=== PATIENT | female | born 1985 | race American Indian/Alaskan Native ===

== ENCOUNTER 2020-08-23 05:38 | Emergency (ER) | payer MEDICARE ==
[2020-08-23] MEDS ORDERED: SODIUM CHLORIDE 0.9% 1000 ML 1,000 ML IV ONE (06:35)
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
[2020-08-23 07:52] LABS: Hematocrit 36.3 % (30.3-42.9); Hemoglobin 12.1 gm/dl (10.1-14.3); Mean Corpuscular HGB Conc 33 % (30-34); Mean Corpuscular Volume 86 fl (79-97); Platelet Count 234 K/mm3 (140-440); Red Blood Count 4.24 M/mm3 (3.65-5.03); Red Cell Distribution Width 13.9 % (13.2-15.2)
[2020-08-23 08:05] LABS: BUN/Creatinine Ratio 6; Blood Urea Nitrogen 7 mg/dL (7-17); Calcium 8.8 mg/dL (8.4-10.2); Hemolysis Index 10
[2020-08-23 09:07] VITALS: BP 125/89
[2020-08-23 12:52] LABS: Anisocytosis 1+; Platelet Estimate Consistent w Auto; Total Cells Counted 100
== END 2020-08-23 09:07 | disposition home or self-care (01) ==
LOC: ED 05:38
DX: E11.65 Type 2 diabetes mellitus with hyperglycemia (principal); F40.10 Social phobia, unspecified; Z79.84 Long term (current) use of oral hypoglycemic drugs; Z79.899 Other long term (current) drug therapy
CPT/HCPCS: 36415; 80048; 85007; 85025; 96360; 99284; J7030; 80320; G0480

== ENCOUNTER 2020-08-29 17:50 | Observation (INO) | payer MEDICARE ==
[2020-08-29] MEDS ORDERED: SODIUM CHLORIDE 0.9% 1000 ML 1,000 ML IV ONE (18:35)
--- NOTE | 2020-08-29 18:41 | Emergency Department Report ---
ED General Adult HPI - General Chief complaint: Weakness Stated complaint: i feel weak PUI?: No Time Seen by Provider: 08/29/20 18:26 Source: patient, EMS ( EMS documentation not available at time of chart dictation ), RN notes reviewed, old records reviewed Mode of arrival: Stretcher Limitations: Physical Limitation - History of Present Illness Initial comments: The patient was evaluated in the emergency department for symptoms described in the history of present illness. He/she was evaluated in the context of the global COVID-19 pandemic, which necessitated consideration that the patient might be at risk for infection with the virus that causes COVID-19. Institutional protocols and algorithms that pertain to the evaluation of patients at risk for COVID-19 are in a state of rapid change based on information released by regulatory bodies including the CDC and federal and state organizations. These policies and algorithms were followed during the patient's care in the emergency department. Please note that these policies, procedures and recommendations changed on a rapid basis. Primary CARE doctor: Dr. Neal Past medical history: Obesity, [id number] diabetes mellitus, diabetic neuropathy, anemia, hypertension, polysubstance abuse, history of DKA, rhabdomyolysis The patient is a 35-year-old female. She is not known to myself previously. She presents to the ER today with complaint of generalized painless weakness, malaise, fatigue, feeling like she will pass out. To me, she denies headache, neck pain, chest pain, abdominal pain. She has no loss of taste or smell. She reports that she recently got her diabetic medication filled, but she cannot recall what specifically she got it filled. She is not sure if she is compliant with a diabetic diet. She tells me that she was walking earlier on today, began to feel weak, and then went to a local police matron, and asked him to call 911, and thus EMS was activated. Patient denies travel, surgery, oral contraceptive use, and the possibility of . The patient's symptoms of weakness are constant, they are painless, she in dicates they worsen with exertion, and they decreased with rest -: Gradual, hour(s), days(s) Improves with: other Worsens with: other - Related Data Home Medications Medication Instructions Recorded Confirmed Last Taken metFORMIN [Glucophage] 850 mg PO BID 08/29/20 08/29/20 Unknown Allergies Allergy/AdvReac Type Severity Reaction Status Date / Time No Known Allergies Allergy Verified 07/20/20 05:07 ED Review of Systems ROS: Stated complaint: HEADACHE Other details as noted in HPI Constitutional: malaise, weakness, other (Denies loss of taste and smell). denies: fever Eyes: denies: eye discharge ENT: denies: epistaxis Respiratory: denies: cough Cardiovascular: other (Patient states she feels like she will pass). denies: chest pain Gastrointestinal: denies: abdominal pain, nausea, vomiting, diarrhea Genitourinary: denies: dysuria Musculoskeletal: myalgia Neurological: weakness ED Past Medical Hx - Past Medical History Hx Diabetes: Yes Hx Renal Disease: No - Surgical History Past Surgical History?: Yes - Social History Smoking Status: Never Smoker - Medications Home Medications: Home Medications Medication Instructions Recorded Confirmed Last Taken Type metFORMIN [Glucophage] 850 mg PO BID 08/29/20 08/29/20 Unknown History ED Physical Exam - General Limitations: Physical Limitation General appearance: anxious, lethargic, in distress, obese - Head Head exam: Present: atraumatic, normocephalic - Eye Eye exam: Present: normal appearance, PERRL, EOMI. Absent: nystagmus - ENT ENT exam: Present: normal orophraynx, mucous membranes dry, normal external ear exam - Neck Neck exam: Present: normal inspection, full ROM. Absent: tenderness, meningismus - Respiratory Respiratory exam: Present: normal lung sounds bilaterally. Absent: respiratory distress, wheezes, rales, rhonchi, stridor, decreased breath sounds - Cardiovascular Cardiovascular Exam: Present: normal rhythm, tachycardia, normal heart sounds. Absent: systolic murmur, diastolic murmur, rubs, gallop - GI/Abdominal GI/Abdominal exam: Present: soft. Absent: distended, tenderness, guarding, rebound, rigid, pulsatile mass - Extremities Exam Extremities exam: Present: normal inspection, full ROM, other (2+ pulses noted in the bilateral upper and lower extremities. There is no palpable cord. negative Homans sign. Muscular compartments are soft. The pelvis is stable.). Absent: pedal edema, calf tenderness - Back Exam Back exam: Present: normal inspection. Absent: tenderness, CVA tenderness (R), CVA tenderness (L), paraspinal tenderness, vertebral tenderness - Neurological Exam Neurological exam: Present: alert (Patient alert to name, month and location. However, she is sleepy, sluggish and slow to respond), other (No facial droop. Tongue midline. Extraocular movements intact bilaterally. Facial sensation intact to light touch in V1, V2, V3 distribution bilaterally. 5 and a 5 strength in 4 extremities. Sensation intact to light touch in 4 extremities.) - Psychiatric Psychiatric exam: Present: flat affect - Skin Skin exam: Present: warm, dry, intact, normal color. Absent: rash ED Course Vital Signs 08/29/20 08/29/20 08/29/20 19:00 19:37 19:46 Temperature 98.8 F Pulse Rate 113 H 105 H Respiratory 18 27 H Rate Blood Pressure 126/97 Blood Pressure 117/82 [left arm] O2 Sat by Pulse 96 97 98 Oximetry 08/29/20 08/29/20 08/29/20 20:00 20:32 20:46 Temperature Pulse Rate 99 H 101 H 95 H Respiratory 29 H 24 26 H Rate Blood Pressure 126/97 132/89 132/89 Blood Pressure [left arm] O2 Sat by Pulse 98 98 98 Oximetry 08/29/20 21:00 Temperature Pulse Rate 98 H Respiratory 34 H Rate Blood Pressure 132/89 Blood Pressure [left arm] O2 Sat by Pulse 98 Oximetry - Reevaluation(s) Reevaluation #1: 08/29/20 18:39 Differential diagnosis, including but not limited to: Diabetic ketoacidosis, hyperosmolar state, dehydration, electrolyte derangement, thyroid derangement, toxic encephalopathy, metabolic encephalopathy, infectious encephalopathy, obesity Assessment and plan: 35-year-old female with general weakness, who is tachycardic, with clammy dry skin, dry mucous membranes, suspicious for acute dehydration, and metabolic crisis. She has no meningeal signs, she is alert and oriented to name, place and location, and has a nonfocal motor examination. Check appropriate laboratory studies, EKG, urinalysis, x-ray the chest, noncontrast CT scan of the brain. Obtain expedient Accu-Chek. We have recommended admission to the medical service once initial diagnostics have resulted. Have discussed this plan of care with the patient, who verbalized understanding, and was amenable to this plan of care. During entire history and physical examination, I am chaperoned and escorted by nurse Awais Xiao. 08/29/20 19:58 156 lbs [place] Body Weight Equivalent to 71 kg Actual body weight is 154% (1.5x) ideal body weight Patient found to rule in for systemic inflammatory response syndrome, manifest by lactic acidosis, tachycardia, and leukocytosis. Patient found to be hypokalemic and hypomagnesemic. She is also found to have an elevated troponin level. She did endorse to me a sensation of near syncope. Given tachycardia, elevated troponin, left axis deviation, with left anterior fascicular block, Uncertain if this is a type II troponin leak, or type I leak. Cannot anticoagulate pending head CT at this time, patient did endorse a complaint of headache to EMS. CT scan of the brain pending. CT scan of the chest pending. We will discussed with cardiology once CT scan of the brain and chest have resulted. This may be a type II leak, given tachycardia and presumed history of drug abuse. Do not suspect bacteremia clinically at this time, patient is awake to name, clinically sober, no meningeal signs, we will give her ceftriaxone empirically, IV fluids, dosed by ideal body weight of 71 kg. 08/29/20 19:59 08/29/20 21:38 patient reassessed. She is awake and moving 4 extremities. She is alert. She is protecting her airway. Noncontrast CT scan of the brain suggests nonspecific sellar abnormality. This has been present since June 2020. It appears to be unchanged from prior. I have contacted our neurosurgeon on-call, Dr. Garay, discussed the patient's history, physical, pertinent imaging findings. He recommends this is likely an incidental finding, does not require emergent surgical intervention or emergent MRI, or emergent medical intervention, but also advises that his group can see the patient in consultation. Elevated troponin reviewed and appreciated. Contacted our promotional representative on-call, Dr. Owen, and have discussed the patient's history, physical, pertinent laboratory studies and imaging findings. He agrees to follow in consultation. We suspect that this is likely a type II troponin leak at this time. Systemic anticoagulation heparinization Not recommended at this time. Hospital physician, Dr. Lewis to admit to the [facility] service Medical decision makin-year-old female, found to have elevated troponin, abnormal EKG, near syncope, multiple electrolyte derangements, and systemic inflammatory response syndrome, to be admitted to the medical service for further supportive care. ED Medical Decision Making - Lab Data Result diagrams: 08/29/20 18:53 08/29/20 18:53 Vital Signs 08/29/20 19:00 Temperature 98.8 F Pulse Rate 113 H Respiratory 18 Rate Blood Pressure 117/82 [left arm] O2 Sat by Pulse 96 Oximetry Lab Results 08/29/20 08/29/20 08/29/20 Range/Units 18:50 18:53 18:53 WBC 14.4 H (4.5-11.0) K/mm3 RBC 4.80 (3.65-5.03) M/mm3 Hgb 13.7 (10.1-14.3) gm/dl Hct 40.3 (30.3-42.9) % MCV 84 (79-97) fl MCH 29 (28-32) pg MCHC 34 (30-34) % RDW 14.0 (13.2-15.2) % Plt Count 354 (140-440) K/mm3 Lymph % (Auto) 4.6 L (13.4-35.0) % [place] % (Auto) 6.6 (0.0-7.3) % Eos % (Auto) 0.0 (0.0-4.3) % Baso % (Auto) 0.4 (0.0-1.8) % Lymph # (Auto) 0.7 L (1.2-5.4) K/mm3 [place] # (Auto) 0.9 H (0.0-0.8) K/mm3 Eos # (Auto) 0.0 (0.0-0.4) K/mm3 Baso # (Auto) 0.1 (0.0-0.1) K/mm3 Seg Neutrophils % 88.4 H (40.0-70.0) % Seg Neutrophils # 12.7 H (1.8-7.7) K/mm3 PT 13.7 (12.2-14.9) Sec. INR 1.07 (0.87-1.13) APTT 28.9 (24.2-36.6) Sec. VBG pH (7.320-7.420) Sodium (137-145) mmol/L Potassium (3.6-5.0) mmol/L Chloride (98-107) mmol/L Carbon Dioxide (22-30) mmol/L Anion Gap mmol/L BUN (7-17) mg/dL Creatinine (0.6-1.2) mg/dL Estimated GFR ml/min BUN/Creatinine Ratio % Glucose (65-100) mg/dL Lactic Acid (0.7-2.0) mmol/L Calcium (8.4-10.2) mg/dL Magnesium (1.7-2.3) mg/dL Total Bilirubin (0.1-1.2) mg/dL AST (5-40) units/L ALT (7-56) units/L Alkaline Phosphatase (35-129) units/L Ammonia (25-60) umol/L Total Creatine Kinase (30-135) units/L Troponin T (0.00-0.029) ng/mL Total Protein (6.3-8.2) g/dL Albumin (3.9-5) g/dL Albumin/Globulin Ratio % Triglycerides (2-149) mg/dL Cholesterol (50-199) mg/dL LDL Cholesterol Direct (50-130) mg/dL HDL Cholesterol (40-59) mg/dL Cholesterol/HDL Ratio % TSH (0.270-4.200) mlU/mL HCG, Quant (0-4) mIU/mL Urine Color Yellow (Yellow) Urine Turbidity Clear (Clear) Urine pH 8.0 H (5.0-7.0) Ur Specific [place] 1.011 (1.003-1.030) Urine Protein 100 mg/dl (Negative) mg/dL Urine Glucose (UA) 50 (Negative) mg/dL Urine Ketones 20 (Negative) mg/dL Urine Blood Sm (Negative) Urine Nitrite Neg (Negative) Urine Bilirubin Neg (Negative) Urine Urobilinogen < 2.0 (<2.0) mg/dL Ur Leukocyte Esterase Neg (Negative) Urine WBC (Auto) 3.0 (0.0-6.0) /HPF Urine RBC (Auto) 1.0 (0.0-6.0) /HPF U Epithel Cells (Auto) < 1.0 (0-13.0) /HPF Urine Mucus Few /HPF Salicylates (2.8-20.0) mg/dL Urine Opiates Screen Urine Methadone Screen Acetaminophen (10.0-30.0) ug/mL Ur Barbiturates Screen Ur Phencyclidine Scrn Ur Amphetamines Screen U Benzodiazepines Scrn Urine Cocaine Screen U Marijuana (THC) Screen Drugs of Abuse Note Plasma/Serum Alcohol (0-0.07) % 08/29/20 08/29/20 08/29/20 Range/Units 18:53 18:53 18:53 WBC (4.5-11.0) K/mm3 RBC (3.65-5.03) M/mm3 Hgb (10.1-14.3) gm/dl Hct (30.3-42.9) % MCV (79-97) fl MCH (28-32) pg MCHC (30-34) % RDW (13.2-15.2) % Plt Count (140-440) K/mm3 Lymph % (Auto) (13.4-35.0) % [place] % (Auto) (0.0-7.3) % Eos % (Auto) (0.0-4.3) % Baso % (Auto) (0.0-1.8) % Lymph # (Auto) (1.2-5.4) K/mm3 [place] # (Auto) (0.0-0.8) K/mm3 Eos # (Auto) (0.0-0.4) K/mm3 Baso # (Auto) (0.0-0.1) K/mm3 Seg Neutrophils % (40.0-70.0) % Seg Neutrophils # (1.8-7.7) K/mm3 PT (12.2-14.9) Sec. INR (0.87-1.13) APTT (24.2-36.6) Sec. VBG pH (7.320-7.420) Sodium 137 (137-145) mmol/L Potassium 3.2 L (3.6-5.0) mmol/L Chloride 96.9 L (98-107) mmol/L Carbon Dioxide 28 (22-30) mmol/L Anion Gap 15 mmol/L BUN 6 L (7-17) mg/dL Creatinine 1.0 (0.6-1.2) mg/dL Estimated GFR > 60 ml/min BUN/Creatinine Ratio 6 % Glucose 127 H (65-100) mg/dL Lactic Acid 3.50 H* (0.7-2.0) mmol/L Calcium 9.7 (8.4-10.2) mg/dL Magnesium (1.7-2.3) mg/dL Total Bilirubin 0.60 (0.1-1.2) mg/dL AST 37 (5-40) units/L ALT 20 (7-56) units/L Alkaline Phosphatase 63 (35-129) units/L Ammonia 55.0 (25-60) umol/L Total Creatine Kinase 758 H (30-135) units/L Troponin T 0.085 H (0.00-0.029) ng/mL Total Protein 8.2 (6.3-8.2) g/dL Albumin 4.2 (3.9-5) g/dL Albumin/Globulin Ratio 1.1 % Triglycerides 81 (2-149) mg/dL Cholesterol 128 (50-199) mg/dL LDL Cholesterol Direct 54 (50-130) mg/dL HDL Cholesterol 68 H (40-59) mg/dL Cholesterol/HDL Ratio 1.88 % TSH (0.270-4.200) mlU/mL HCG, Quant (0-4) mIU/mL Urine Color (Yellow) Urine Turbidity (Clear) Urine pH (5.0-7.0) Ur Specific [place] (1.003-1.030) Urine Protein (Negative) mg/dL Urine Glucose (UA) (Negative) mg/dL Urine Ketones (Negative) mg/dL Urine Blood (Negative) Urine Nitrite (Negative) Urine Bilirubin (Negative) Urine Urobilinogen (<2.0) mg/dL Ur Leukocyte Esterase (Negative) Urine WBC (Auto) (0.0-6.0) /HPF Urine RBC (Auto) (0.0-6.0) /HPF U Epithel Cells (Auto) (0-13.0) /HPF Urine Mucus /HPF Salicylates (2.8-20.0) mg/dL Urine Opiates Screen Urine Methadone Screen Acetaminophen (10.0-30.0) ug/mL Ur Barbiturates Screen Ur Phencyclidine Scrn Ur Amphetamines Screen U Benzodiazepines Scrn Urine Cocaine Screen U Marijuana (THC) Screen Drugs of Abuse Note Plasma/Serum Alcohol (0-0.07) % 08/29/20 08/29/20 08/29/20 Range/Units 18:53 18:53 18:53 WBC (4.5-11.0) K/mm3 RBC (3.65-5.03) M/mm3 Hgb (10.1-14.3) gm/dl Hct (30.3-42.9) % MCV (79-97) fl MCH (28-32) pg MCHC (30-34) % RDW (13.2-15.2) % Plt Count (140-440) K/mm3 Lymph % (Auto) (13.4-35.0) % [place] % (Auto) (0.0-7.3) % Eos % (Auto) (0.0-4.3) % Baso % (Auto) (0.0-1.8) % Lymph # (Auto) (1.2-5.4) K/mm3 [place] # (Auto) (0.0-0.8) K/mm3 Eos # (Auto) (0.0-0.4) K/mm3 Baso # (Auto) (0.0-0.1) K/mm3 Seg Neutrophils % (40.0-70.0) % Seg Neutrophils # (1.8-7.7) K/mm3 PT (12.2-14.9) Sec. INR (0.87-1.13) APTT (24.2-36.6) Sec. VBG pH (7.320-7.420) Sodium (137-145) mmol/L Potassium (3.6-5.0) mmol/L Chloride (98-107) mmol/L Carbon Dioxide (22-30) mmol/L Anion Gap mmol/L BUN (7-17) mg/dL Creatinine (0.6-1.2) mg/dL Estimated GFR ml/min BUN/Creatinine Ratio % Glucose (65-100) mg/dL Lactic Acid (0.7-2.0) mmol/L Calcium (8.4-10.2) mg/dL Magnesium (1.7-2.3) mg/dL Total Bilirubin (0.1-1.2) mg/dL AST (5-40) units/L ALT (7-56) units/L Alkaline Phosphatase (35-129) units/L Ammonia (25-60) umol/L Total Creatine Kinase (30-135) units/L Troponin T (0.00-0.029) ng/mL Total Protein (6.3-8.2) g/dL Albumin (3.9-5) g/dL Albumin/Globulin Ratio % Triglycerides (2-149) mg/dL Cholesterol (50-199) mg/dL LDL Cholesterol Direct (50-130) mg/dL HDL Cholesterol (40-59) mg/dL Cholesterol/HDL Ratio % TSH 2.000 (0.270-4.200) mlU/mL HCG, Quant (0-4) mIU/mL Urine Color (Yellow) Urine Turbidity (Clear) Urine pH (5.0-7.0) Ur Specific [place] (1.003-1.030) Urine Protein (Negative) mg/dL Urine Glucose (UA) (Negative) mg/dL Urine Ketones (Negative) mg/dL Urine Blood (Negative) Urine Nitrite (Negative) Urine Bilirubin (Negative) Urine Urobilinogen (<2.0) mg/dL Ur Leukocyte Esterase (Negative) Urine WBC (Auto) (0.0-6.0) /HPF Urine RBC (Auto) (0.0-6.0) /HPF U Epithel Cells (Auto) (0-13.0) /HPF Urine Mucus /HPF Salicylates < 0.3 L (2.8-20.0) mg/dL Urine Opiates Screen Urine Methadone Screen Acetaminophen 5.0 L (10.0-30.0) ug/mL Ur Barbiturates Screen Ur Phencyclidine Scrn Ur Amphetamines Screen U Benzodiazepines Scrn Urine Cocaine Screen U Marijuana (THC) Screen Drugs of Abuse Note Plasma/Serum Alcohol (0-0.07) % 08/29/20 08/29/20 08/29/20 Range/Units 18:53 18:53 18:53 WBC (4.5-11.0) K/mm3 RBC (3.65-5.03) M/mm3 Hgb (10.1-14.3) gm/dl Hct (30.3-42.9) % MCV (79-97) fl MCH (28-32) pg MCHC (30-34) % RDW (13.2-15.2) % Plt Count (140-440) K/mm3 Lymph % (Auto) (13.4-35.0) % [place] % (Auto) (0.0-7.3) % Eos % (Auto) (0.0-4.3) % Baso % (Auto) (0.0-1.8) % Lymph # (Auto) (1.2-5.4) K/mm3 [place] # (Auto) (0.0-0.8) K/mm3 Eos # (Auto) (0.0-0.4) K/mm3 Baso # (Auto) (0.0-0.1) K/mm3 Seg Neutrophils % (40.0-70.0) % Seg Neutrophils # (1.8-7.7) K/mm3 PT (12.2-14.9) Sec. INR (0.87-1.13) APTT (24.2-36.6) Sec. VBG pH (7.320-7.420) Sodium (137-145) mmol/L Potassium (3.6-5.0) mmol/L Chloride (98-107) mmol/L Carbon Dioxide (22-30) mmol/L Anion Gap mmol/L BUN (7-17) mg/dL Creatinine (0.6-1.2) mg/dL Estimated GFR ml/min BUN/Creatinine Ratio % Glucose (65-100) mg/dL Lactic Acid (0.7-2.0) mmol/L Calcium (8.4-10.2) mg/dL Magnesium 1.60 L (1.7-2.3) mg/dL Total Bilirubin (0.1-1.2) mg/dL AST (5-40) units/L ALT (7-56) units/L Alkaline Phosphatase (35-129) units/L Ammonia (25-60) umol/L Total Creatine Kinase (30-135) units/L Troponin T (0.00-0.029) ng/mL Total Protein (6.3-8.2) g/dL Albumin (3.9-5) g/dL Albumin/Globulin Ratio % Triglycerides (2-149) mg/dL Cholesterol (50-199) mg/dL LDL Cholesterol Direct (50-130) mg/dL HDL Cholesterol (40-59) mg/dL Cholesterol/HDL Ratio % TSH (0.270-4.200) mlU/mL HCG, Quant < 2 (0-4) mIU/mL Urine Color (Yellow) Urine Turbidity (Clear) Urine pH (5.0-7.0) Ur Specific [place] (1.003-1.030) Urine Protein (Negative) mg/dL Urine Glucose (UA) (Negative) mg/dL Urine Ketones (Negative) mg/dL Urine Blood (Negative) Urine Nitrite (Negative) Urine Bilirubin (Negative) Urine Urobilinogen (<2.0) mg/dL Ur Leukocyte Esterase (Negative) Urine WBC (Auto) (0.0-6.0) /HPF Urine RBC (Auto) (0.0-6.0) /HPF U Epithel Cells (Auto) (0-13.0) /HPF Urine Mucus /HPF Salicylates (2.8-20.0) mg/dL Urine Opiates Screen Urine Methadone Screen Acetaminophen (10.0-30.0) ug/mL Ur Barbiturates Screen Ur Phencyclidine Scrn Ur Amphetamines Screen U Benzodiazepines Scrn Urine Cocaine Screen U Marijuana (THC) Screen Drugs of Abuse Note Plasma/Serum Alcohol < 0.01 (0-0.07) % 08/29/20 08/29/20 Range/Units 18:53 19:01 WBC (4.5-11.0) K/mm3 RBC (3.65-5.03) M/mm3 Hgb (10.1-14.3) gm/dl Hct (30.3-42.9) % MCV (79-97) fl MCH (28-32) pg MCHC (30-34) % RDW (13.2-15.2) % Plt Count (140-440) K/mm3 Lymph % (Auto) (13.4-35.0) % [place] % (Auto) (0.0-7.3) % Eos % (Auto) (0.0-4.3) % Baso % (Auto) (0.0-1.8) % Lymph # (Auto) (1.2-5.4) K/mm3 [place] # (Auto) (0.0-0.8) K/mm3 Eos # (Auto) (0.0-0.4) K/mm3 Baso # (Auto) (0.0-0.1) K/mm3 Seg Neutrophils % (40.0-70.0) % Seg Neutrophils # (1.8-7.7) K/mm3 PT (12.2-14.9) Sec. INR (0.87-1.13) APTT (24.2-36.6) Sec. VBG pH 7.421 H (7.320-7.420) Sodium (137-145) mmol/L Potassium (3.6-5.0) mmol/L Chloride (98-107) mmol/L Carbon Dioxide (22-30) mmol/L Anion Gap mmol/L BUN (7-17) mg/dL Creatinine (0.6-1.2) mg/dL Estimated GFR ml/min BUN/Creatinine Ratio % Glucose (65-100) mg/dL Lactic Acid (0.7-2.0) mmol/L Calcium (8.4-10.2) mg/dL Magnesium (1.7-2.3) mg/dL Total Bilirubin (0.1-1.2) mg/dL AST (5-40) units/L ALT (7-56) units/L Alkaline Phosphatase (35-129) units/L Ammonia (25-60) umol/L Total Creatine Kinase (30-135) units/L Troponin T (0.00-0.029) ng/mL Total Protein (6.3-8.2) g/dL Albumin (3.9-5) g/dL Albumin/Globulin Ratio % Triglycerides (2-149) mg/dL Cholesterol (50-199) mg/dL LDL Cholesterol Direct (50-130) mg/dL HDL Cholesterol (40-59) mg/dL Cholesterol/HDL Ratio % TSH (0.270-4.200) mlU/mL HCG, Quant (0-4) mIU/mL Urine Color (Yellow) Urine Turbidity (Clear) Urine pH (5.0-7.0) Ur Specific [place] (1.003-1.030) Urine Protein (Negative) mg/dL Urine Glucose (UA) (Negative) mg/dL Urine Ketones (Negative) mg/dL Urine Blood (Negative) Urine Nitrite (Negative) Urine Bilirubin (Negative) Urine Urobilinogen (<2.0) mg/dL Ur Leukocyte Esterase (Negative) Urine WBC (Auto) (0.0-6.0) /HPF Urine RBC (Auto) (0.0-6.0) /HPF U Epithel Cells (Auto) (0-13.0) /HPF Urine Mucus /HPF Salicylates (2.8-20.0) mg/dL Urine Opiates Screen Negative Urine Methadone Screen Negative Acetaminophen (10.0-30.0) ug/mL Ur Barbiturates Screen Negative Ur Phencyclidine Scrn Negative Ur Amphetamines Screen Negative U Benzodiazepines Scrn Negative Urine Cocaine Screen Positive U Marijuana (THC) Screen Negative Drugs of Abuse Note Disclamer Plasma/Serum Alcohol (0-0.07) % - EKG Data -: EKG Interpreted by Me Rate: tachycardia - EKG Data When compared to previous EKG there are: previous EKG unavailable (There is no prior twelve-lead EKG available for my comparison at this time.) 08/29/20 18:56 EKG interpreted at 18: 39 Sinus rhythm, tachycardia, 111 bpm. Left axis deviation, left anterior fascicular block. High left ventricular voltage, the QTC is prolonged. This is an abnormal EKG. This is not a STEMI. - Radiology Data Radiology results: pending, report reviewed, image reviewed CT HEAD WITHOUT CONTRAST INDICATION / CLINICAL INFORMATION: Altered Mental St atus. TECHNIQUE: All CT scans at this location are performed using CT dose reduction for ALARA by means of automated exposure control. COMPARISON: Head CT 07/20/2020 FINDINGS: HEMORRHAGE: No evidence of intracranial hemorrhage or extra-axial fluid collection. EXTRA-AXIAL SPACES: Cortical sulci, sylvian fissures and basilar cisterns have an unremarkable appearance. VENTRICULAR SYSTEM: The third and lateral ventricles are of normal size and configuration. CEREBRAL PARENCHYMA: No areas of abnormal brain parenchymal attenuation are identified. There is no indication of recent infarction. MIDLINE SHIFT OR HERNIATION: There is no mass effect. CEREBELLUM / BRAINSTEM: Brainstem and cerebellum have an unremarkable appearance. MIDLINE STRUCTURES:No abnormalities of the pituitary gland or pineal region are identified. INTRACRANIAL VESSELS:No abnormalities are identified on this noncontrast head CT. ORBITS: visualized portions of the orbits have an unremarkable appearance. SOFT TISSUES of HEAD: No significant abnormality. CALVARIUM: Evaluation of bone windows reveals no abnormalities. PARANASAL SINUSES / MASTOID AIR CELLS: A polypoid lesion is present in the central aspect of the sphenoid sinus lateralizing to the left the midline. This is contiguous with the sella turcica. There is evidence of bony dehiscence of the sella turcica adjacent to this finding. The possibility of a trans sellar sphenoidal encephalocele should be considered. Further evaluation with magnetic resonance imaging of the brain and sella turcica is suggested. This finding is unchanged compared to previous study 07/20/2020. ADDITIONAL FINDINGS: None. IMPRESSION: 1. No acute intracranial abnormality. 2. Polypoid lesion located centrally within the sphenoid sinus as described above. This is in continuity with the sella turcica and there is evidence of bony dehiscence between the lesion in the sella turcica. The possibility of trans sellar sphenoidal encephalocele should be considered. Elective further evaluation with MRI of brain and sella turcica is suggested. Signer Name: Segundo William MD Signed: 08/29 8:12 PM Workstation Name: [id number] CTA CHEST WITH IV CONTRAST INDICATION: near syncope, tachycardia, + troponin. TECHNIQUE: Axial CT images were obtained through the chest after injection of 100 cc Omni 350 IV contrast. 3 plane MIP reconstructions were produced. All CT scans at this location are performed using CT dose reduction for ALARA by means of automated exposure control. COMPARISON: None available. FINDINGS: PULMONARY ARTERIES: No pulmonary emboli. THORACIC AORTA: No acute abnormality. HEART: Normal. CORONARY ARTERIES: No significant calcification. PLEURA: No pleural eff usion. No pneumothorax. LYMPH NODES: No significant adenopathy. LUNGS: No acute air space or interstitial disease. ADDITIONAL FINDINGS: None. UPPER ABDOMEN: No acute findings. SKELETAL STRUCTURES: No significant osseous abnormality. IMPRESSION: 1. No CT evidence for pulmonary embolism. 2. No acute findings. Signer Name: Jaya Stone MD Signed: 08/29/2020 7:37 PM Workstation Name: [id number] Critical Care Time: Yes Critical care time in (mins) excluding proc time.: 35 Critical care attestation.: If time is entered above; I have spent that time in minutes in the direct care of this critically ill patient, excluding procedure time. ED Disposition Clinical Impression: Hypokalemia, Hypomagnesemia, Lactic acidosis, SIRS (systemic inflammatory response syndrome), Elevated troponin, Headache, Near syncope Disposition: 09 OP ADMIT IP TO THIS HOSP Is pt being admited?: Yes Does the pt Need Aspirin: No Condition: Serious Referrals: PRIMARY CARE, [Primary Care Provider] - 3-5 Days
[2020-08-29 19:12] LABS: Basophils # (Auto) 0.1 K/mm3 (0.0-0.1); Basophils % (Auto) 0.4 % (0.0-1.8); Hematocrit 40.3 % (30.3-42.9); Hemoglobin 13.7 gm/dl (10.1-14.3); Lymphocytes # (Auto) 0.7 K/mm3 (1.2-5.4); Lymphocytes % (Auto) 4.6 % (13.4-35.0); Mean Corpuscular HGB Conc 34 % (30-34); Mean Corpuscular Volume 84 fl (79-97); Monocytes # (Auto) 0.9 K/mm3 (0.0-0.8); Monocytes % (Auto) 6.6 % (0.0-7.3); Platelet Count 354 K/mm3 (140-440)
[2020-08-29 19:13] LABS: Bilirubin,Urine NEG (Negative); Blood,Urine SM (Negative); Color,Urine Yellow (Yellow); Mucus,Urine FEW /HPF; Urobilinogen,Urine < 2.0 mg/dL (<2.0)
[2020-08-29 19:18] LABS: Amphetamine Screen,Urine Negative; Benzodiazepines Screen,Urine Negative; Cannabinoid Screen,Urine Negative; Methadone Screen,Urine Negative; Opiate Screen,Urine Negative
[2020-08-29 19:22] LABS: INR 1.07 (0.87-1.13)
[2020-08-29 19:23] LABS: Partial Thromboplastin Time 28.9 Sec. (24.2-36.6)
[2020-08-29] MEDS ORDERED: MAGNESIUM SULFATE 2 GM/50 ML BAG IV ONE ×2 (19:27→22:44)
[2020-08-29 19:33] LABS: Alanine Aminotransferase 20 units/L (7-56); Albumin 4.2 g/dL (3.9-5); BUN/Creatinine Ratio 6; Blood Urea Nitrogen 6 mg/dL (7-17); Calcium 9.7 mg/dL (8.4-10.2); Hemolysis Index 1
[2020-08-29] MEDS ORDERED: POTASSIUM CHLORIDE ER 20 MEQ TAB PO ONE ×2 (19:36→22:54)
[2020-08-29 19:43] LABS: Chol/HDL Ratio 1.88 %; HDL Cholesterol 68 mg/dL (40-59); LDL Cholesterol,Direct 54 mg/dL (50-130)
[2020-08-29 19:57] LABS: Cocaine Screen,Urine Positive
[2020-08-29] MEDS ORDERED: SODIUM CHLORIDE 0.9% IV ONE (19:59)
[2020-08-29] MEDS ORDERED: cefTRIAXone/NS 1 GM/50 ML 1 GM/50 ML BAG IV ONE (19:59)
[2020-08-29] MEDS: POTASSIUM CHLORIDE 10 MEQ 10 MEQ/100 ML BAG IV SCH ×2 (20:42→22:14)
--- NOTE | 2020-08-29 20:42 | Cat Scan Report ---
CTA CHEST WITH IV CONTRAST INDICATION: near syncope, tachycardia, + troponin. TECHNIQUE: Axial CT images were obtained through the chest after injection of 100 cc Omni 350 IV contrast. 3 devon ne MIP reconstructions were produced. All CT scans at this location are performed using CT dose reduc tion for ALARA by means of automated exposure control. COMPARISON: None available. FINDINGS: PULMONARY ARTERIES: No pulmonary emboli. THORACIC AORTA: No acute abnormality. HEART: Normal. CORONARY ARTERIES: No significant calcification. PLEURA: No pleural effusion. No pneumothorax. LYMPH NODES: No significant adenopathy. LUNGS: No acute air space or interstitial disease. ADDITIONAL FINDINGS: None. UPPER ABDOMEN: No acute findings. SKELETAL STRUCTURES: No significant osseous abnormality. IMPRESSION: 1. No CT evidence for pulmonary embolism. 2. No acute findings. Signer Name: Jaya Stone MD Signed: 08/29/2020 8:37 PM Workstation Name: [id number]
--- NOTE | 2020-08-29 21:17 | Cat Scan Report ---
CT HEAD WITHOUT CONTRAST INDICATION / CLINICAL INFORMATION: Altered Mental Status. TECHNIQUE: All CT scans at this location are performed using CT dose reduction for ALARA by means of automated e xposure control. COMPARISON: Head CT 07/20/2020 FINDINGS: HEMORRHAGE: No evidence of intracranial hemorrhage or extra-axial fluid collection. EXTRA-AXIAL SPACES: Cortical sulci, sylvian fissures and basilar cisterns have an unremarkable appear ance. VENTRICULAR SYSTEM: The third and lateral ventricles are of normal size and configuration. CEREBRAL PARENCHYMA: No areas of abnormal brain parenchymal attenuation are identified. There is no i ndication of recent infarction. MIDLINE SHIFT OR HERNIATION: There is no mass effect. CEREBELLUM / BRAINSTEM: Brainstem and cerebellum have an unremarkable appearance. MIDLINE STRUCTURES:No abnormalities of the pituitary gland or pineal region are identified. INTRACRANIAL VESSELS:No abnormalities are identified on this noncontrast head CT. ORBITS: visualized portions of the orbits have an unremarkable appearance. SOFT TISSUES of HEAD: No significant abnormality. CALVARIUM: Evaluation of bone windows reveals no abnormalities. PARANASAL SINUSES / MASTOID AIR CELLS: A polypoid lesion is present in the central aspect of the sphe noid sinus lateralizing to the left the midline. This is contiguous with the sella turcica. There is evidence of bony dehiscence of the sella turcica adjacent to this finding. The possibility of a trans sellar sphenoidal encephalocele should be considered. Further evaluation with magnetic resonance brianna ging of the brain and sella turcica is suggested. This finding is unchanged compared to previous stud y 07/20/2020. ADDITIONAL FINDINGS: None. IMPRESSION: 1. No acute intracranial abnormality. 2. Polypoid lesion located centrally within the sphenoid sinus as described above. This is in continu ity with the sella turcica and there is evidence of bony dehiscence between the lesion in the sella t urcica. The possibility of trans sellar sphenoidal encephalocele should be considered. Elective furth er evaluation with MRI of brain and sella turcica is suggested. Signer Name: Segundo William MD Signed: 08/29/2020 9:12 PM Workstation Name: [id number]
[2020-08-29] MEDS ORDERED: METOCLOPRAMIDE 10 MG/2 ML INJ IV ONE (21:41)
[2020-08-29] MEDS ORDERED: diphenhydrAMINE 50 MG/ML VIAL IV ONE (21:41)
[2020-08-29] MEDS ORDERED: ASPIRIN 325 MG TAB PO ONE (21:41)
[2020-08-29] MEDS ORDERED: traMADol 50 MG TAB PO PRN (21:54)
[2020-08-29] MEDS ORDERED: ACETAMINOPHEN 325 MG TAB PO PRN (21:54)
[2020-08-29] MEDS ORDERED: hydrALAZINE 20 MG/1 ML INJ IV PRN (21:59)
[2020-08-29] MEDS ORDERED: metFORMIN 850 MG TAB PO SCH (22:00)
--- NOTE | 2020-08-29 22:06 | History and Physical Report ---
History of Present Illness Date of examination: 08/29/20 Date of admission: 08/29/20 Chief complaint: Generalized weakness Syncope History of present illness: 35 years old female with history of obesity [id number] diabetes mellitus diabetic neuropathy anemia hypertension polysubstance abuse rhabdomyolysis was brought to the emergency room because of generalized weakness fatigue malaise and syncopal episode. Patient denied any chest pain no abdominal pain. Complained of shortness of breath. In the emergency room patient is found to have elevated troponin, abnormal EKG, near syncope and multiple electrolyte derangement and systemic inflammatory re sponse syndrome Noncontrast CT scan of the brain suggests nonspecific sellar abnormality. Past History Past Medical History: anemia, diabetes, hypertension Medications and Allergies Allergies Allergy/AdvReac Type Severity Reaction Status Date / Time No Known Allergies Allergy Verified 07/20/20 05:07 Home Medications Medication Instructions Recorded Confirmed Last Taken Type metFORMIN [Glucophage] 850 mg PO BID 08/29/20 08/29/20 Unknown History Active Meds: Active Medications Acetaminophen (Acetaminophen 325 Mg Tab) 650 mg PO Q6H PRN PRN Reason: Pain, Mild (1-3) Aspirin (Aspirin Ec 325 Mg Tab) 325 mg PO QDAY BRIAN Atorvastatin Calcium (Atorvastatin 40 Mg Tab) 40 mg PO QHS BRIAN Heparin Sodium (Porcine) (Heparin 5,000 Unit/1 Ml Vial) 5,000 unit SUB-Q Q8HR BRIAN Hydralazine HCl (Hydralazine 20 Mg/1 Ml Inj) 10 mg IV Q6H PRN PRN Reason: htn Potassium Chloride (Kcl 10meq/100ml) 10 meq in 100 mls @ 100 mls/hr IV Q1H BRIAN Stop: 08/29/20 23:59 Last Admin: 08/29/20 20:42 Dose: 100 mls/hr Documented by: Sodium Chloride (Nacl 0.45% 1000 Ml) 1,000 mls @ 100 mls/hr IV DIRECT BRIAN Metformin HCl (Metformin 850 Mg Tab) 850 mg PO BID BRIAN Pantoprazole Sodium (Pantoprazole 40 Mg Tab) 40 mg PO QDAY BRIAN Sodium Chloride (Sodium Chloride 0.9% 10 Ml Flush Syringe) 10 ml IV PRN PRN PRN Reason: LINE FLUSH Tramadol HCl (Tramadol 50 Mg Tab) 50 mg PO Q6H PRN PRN Reason: Pain, Moderate (4-6) Review of Systems Constitutional: fatigue, weakness, malaise, lethargy Cardiovascular: syncope Exam - Constitutional Vitals: Temp Pulse Resp BP Pulse Ox 98.8 F 98 H 34 H 132/89 98 08/29/20 19:00 08/29/20 21:00 08/29/20 21:00 08/29/20 21:00 08/29/20 21:00 General appearance: Present: no acute distress, well-nourished - EENT Eyes: Present: PERRL ENT: hearing intact, clear oral mucosa - Neck Neck: Present: supple, normal ROM - Respiratory Respiratory effort: normal Respiratory: bilateral: CTA - Cardiovascular Heart Sounds: Present: S1 & S2. Absent: rub, click - Extremities Extremities: pulses symmetrical, No edema Peripheral Pulses: within normal limits - Abdominal General gastrointestinal: Present: soft, non-tender, non-distended, normal bowel sounds Female genitourinary: Present: normal - Integumentary Integumentary: Present: clear, warm, dry - Musculoskeletal Musculoskeletal: gait normal, strength equal bilaterally - Psychiatric Psychiatric: appropriate mood/affect, intact judgment & insight - Neurologic Neurologic: CNII-XII intact, moves all extremities HEART Score - HEART Score Troponin: Troponin T 0.085 ng/mL (0.00-0.029) H 08/29/20 18:53 Results - Labs CBC & Chem 7: 08/29/20 18:53 08/29/20 18:53 Labs: Laboratory Last Values WBC 14.4 K/mm3 (4.5-11.0) H 08/29/20 18:53 RBC 4.80 M/mm3 (3.65-5.03) 08/29/20 18:53 Hgb 13.7 gm/dl (10.1-14.3) 08/29/20 18:53 Hct 40.3 % (30.3-42.9) 08/29/20 18:53 MCV 84 fl (79-97) 08/29/20 18:53 MCH 29 pg (28-32) 08/29/20 18:53 MCHC 34 % (30-34) 08/29/20 18:53 RDW 14.0 % (13.2-15.2) 08/29/20 18:53 Plt Count 354 K/mm3 (140-440) 08/29/20 18:53 Lymph % (Auto) 4.6 % (13.4-35.0) L 08/29/20 18:53 [place] % (Auto) 6.6 % (0.0-7.3) 08/29/20 18:53 Eos % (Auto) 0.0 % (0.0-4.3) 08/29/20 18:53 Baso % (Auto) 0.4 % (0.0-1.8) 08/29/20 18:53 Lymph # (Auto) 0.7 K/mm3 (1.2-5.4) L 08/29/20 18:53 [place] # (Auto) 0.9 K/mm3 (0.0-0.8) H 08/29/20 18:53 Eos # (Auto) 0.0 K/mm3 (0.0-0.4) 08/29/20 18:53 Baso # (Auto) 0.1 K/mm3 (0.0-0.1) 08/29/20 18:53 Seg Neutrophils % 88.4 % (40.0-70.0) H 08/29/20 18:53 Seg Neutrophils # 12.7 K/mm3 (1.8-7.7) H 08/29/20 18:53 PT 13.7 Sec. (12.2-14.9) 08/29/20 18:53 INR 1.07 (0.87-1.13) 08/29/20 18:53 APTT 28.9 Sec. (24.2-36.6) 08/29/20 18:53 D-Dimer 763.6 ng/mlDDU (0-234) H 08/29/20 Unknown VBG pH 7.421 (7.320-7.420) H 08/29/20 18:53 Sodium 137 mmol/L (137-145) 08/29/20 18:53 Potassium 3.2 mmol/L (3.6-5.0) L 08/29/20 18:53 Chloride 96.9 mmol/L (98-107) L 08/29/20 18:53 Carbon Dioxide 28 mmol/L (22-30) 08/29/20 18:53 Anion Gap 15 mmol/L 08/29/20 18:53 BUN 6 mg/dL (7-17) L 08/29/20 18:53 Creatinine 1.0 mg/dL (0.6-1.2) 08/29/20 18:53 Estimated GFR > 60 ml/min 08/29/20 18:53 BUN/Creatinine Ratio 6 % 08/29/20 18:53 Glucose 127 mg/dL (65-100) H 08/29/20 18:53 Lactic Acid 3.50 mmol/L (0.7-2.0) H* 08/29/20 18:53 Calcium 9.7 mg/dL (8.4-10.2) 08/29/20 18:53 Magnesium 1.60 mg/dL (1.7-2.3) L 08/29/20 18:53 Total Bilirubin 0.60 mg/dL (0.1-1.2) 08/29/20 18:53 AST 37 units/L (5-40) 08/29/20 18:53 ALT 20 units/L (7-56) 08/29/20 18:53 Alkaline Phosphatase 63 units/L (35-129) 08/29/20 18:53 Ammonia 55.0 umol/L (25-60) 08/29/20 18:53 Total Creatine Kinase 758 units/L (30-135) H 08/29/20 18:53 Troponin T 0.085 ng/mL (0.00-0.029) H 08/29/20 18:53 Total Protein 8.2 g/dL (6.3-8.2) 08/29/20 18:53 Albumin 4.2 g/dL (3.9-5) 08/29/20 18:53 Albumin/Globulin Ratio 1.1 % 08/29/20 18:53 Triglycerides 81 mg/dL (2-149) 08/29/20 18:53 Cholesterol 128 mg/dL (50-199) 08/29/20 18:53 LDL Cholesterol Direct 54 mg/dL (50-130) 08/29/20 18:53 HDL Cholesterol 68 mg/dL (40-59) H 08/29/20 18:53 Cholesterol/HDL Ratio 1.88 % 08/29/20 18:53 TSH 2.000 mlU/mL (0.270-4.200) 08/29/20 18:53 HCG, Quant < 2 mIU/mL (0-4) 08/29/20 18:53 Urine Color Yellow (Yellow) 08/29/20 18:50 Urine Turbidity Clear (Clear) 08/29/20 18:50 Urine pH 8.0 (5.0-7.0) H 08/29/20 18:50 Ur Specific [place] 1.011 (1.003-1.030) 08/29/20 18:50 Urine Protein 100 mg/dl mg/dL (Negative) 08/29/20 18:50 Urine Glucose (UA) 50 mg/dL (Negative) 08/29/20 18:50 Urine Ketones 20 mg/dL (Negative) 08/29/20 18:50 Urine Blood Sm (Negative) 08/29/20 18:50 Urine Nitrite Neg (Negative) 08/29/20 18:50 Urine Bilirubin Neg (Negative) 08/29/20 18:50 Urine Urobilinogen < 2.0 mg/dL (<2.0) 08/29/20 18:50 Ur Leukocyte Esterase Neg (Negative) 08/29/20 18:50 Urine WBC (Auto) 3.0 /HPF (0.0-6.0) 08/29/20 18:50 Urine RBC (Auto) 1.0 /HPF (0.0-6.0) 08/29/20 18:50 U Epithel Cells (Auto) < 1.0 /HPF (0-13.0) 08/29/20 18:50 Urine Mucus Few /HPF 08/29/20 18:50 Salicylates < 0.3 mg/dL (2.8-20.0) L 08/29/20 18:53 Urine Opiates Screen Negative 08/29/20 19:01 Urine Methadone Screen Negative 08/29/20 19:01 Acetaminophen 5.0 ug/mL (10.0-30.0) L 08/29/20 18:53 Ur Barbiturates Screen Negative 08/29/20 19:01 Ur Phencyclidine Scrn Negative 08/29/20 19:01 Ur Amphetamines Screen Negative 08/29/20 19:01 U Benzodiazepines Scrn Negative 08/29/20 19:01 Urine Cocaine Screen Positive 08/29/20 19:01 U Marijuana (THC) Screen Negative 08/29/20 19:01 Drugs of Abuse Note Disclamer 08/29/20 19:01 Plasma/Serum Alcohol < 0.01 % (0-0.07) 08/29/20 18:53 Microbiology: Microbiology 08/29/20 18:53 Peripheral/Venous Blood Culture - Preliminary Culture in Progress 08/29/20 18:53 Peripheral/Venous Blood Culture - Preliminary Culture in Progress - Imaging and Cardiology CT scan - chest: image reviewed CT Scan - head: image reviewed Assessment and Plan VTE prophylaxis?: Chemical Plan of care discussed with patient/family: Yes - Patient Problems (1) Near syncope Current Visit: Yes Status: Acute Plan to address problem: Admit the patient to the cardiac telemetry. Abnormal saline at the rate of 100 cc/h. Aspirin 325 mg p.o. daily. Lipitor 40 mg p.o. daily. We do the serial cardiac enzyme. We also do a echocardiogram and cardiac duplex. Will consult cardiology for further evaluation and treatment. Recheck CBC BMP in the morning (2) SIRS (systemic inflammatory response syndrome) Current Visit: Yes Status: Acute Plan to address problem: IV fluid half-normal saline at the rate of 100 cc/h. Rocephin 1 g IV daily. We do the blood culture urine culture. Recheck CBC in the morning (3) Diabetes 1.5, managed as type 2 Current Visit: Yes Status: Acute Plan to address problem: We put the patient insulin sliding scale and diabetic diet. Will we will continue the home medication (4) Hypokalemia Current Visit: Yes Status: Acute Plan to address problem: Potassium chloride 40 mEq p.o. x1 dose. Recheck BMP in the morning (5) Hypomagnesemia Current Visit: Yes Status: Acute Plan to address problem: We are giving 2 g of magnesium. Recheck magnesium in the morning (6) Lactic acidosis Current Visit: Yes Status: Acute Plan to address problem: IV fluid half-normal saline at the rate of 100 cc/h. Rocephin 1 g IV daily. We do the blood culture urine culture. Recheck CBC in the morning (7) Abnormal CT of brain Current Visit: Yes Status: Acute Plan to address problem: We will put the patient on aspirin 325 mg p.o. daily and Lipitor 40 mg p.o. daily. Will consult PT OT any speech evaluation. We also order MRI of the brain without contrast and consult neurosurgery to see the patient in the morning (8) DVT prophylaxis Current Visit: Yes Status: Acute Plan to address problem: Heparin 5000 units subcu every 8 hours for DVT prophylaxis and Protonix 40 mg p.o. daily for GI prophylaxis. Patient is a full code
[2020-08-29] MEDS ORDERED: DEXTROSE 50% IN WATER (25GM) 50 ML SYRINGE IV PRN (22:14)
[2020-08-30] MEDS: HEPARIN 5,000 UNIT/1 ML VIAL SUB-Q SCH ×4 (00:19→22:00)
[2020-08-30] MEDS: POTASSIUM CHLORIDE 10 MEQ 10 MEQ/100 ML BAG IV SCH ×2 (00:29→03:26)
[2020-08-30] MEDS: SODIUM CHLORIDE 0.45% 1000 ML 1,000 ML IV SCH (03:20)
[2020-08-30] MEDS ORDERED: INSULIN REGULAR, HUMAN 100 UNITS/1 ML SUB-Q SCH (07:30)
--- NOTE | 2020-08-30 09:50 | Consultation ---
History of Present Illness Consult date: 08/30/20 Requesting physician: ESTER GARCIA Consult reason: elevated troponin History of present illness: This patient is a 35 year old female with a significant hx of NIDDM, Anemia, HTN, polysubstance abuse, and rhabdomyolitis. She is previously unknown to our practice. She presented to [facility] ER with a complaint of general weakness, fatigue, malaise, and syncopal episode. EMS reports pt walked up to [place] [employer] and asked for EMS for feeling of weakness. Cardiology is consulted for elevated Troponin. She is found to be in Rhabdomyelitis with elevated Creatinine Kinase. Tox screen is positive for cocaine. On exam pt is found walking around her hospital room without dizziness or presyncope. Pt denies chest pain, SOB, Abd Pain, N/V/D, recent illness. Pt denies Tobacco, ETOH. Of note: She reports being seen in [facility] ER for a similar episode 1-2 months prior when she was found to be in DKA. Tele reviewed: SR 76. No events. 12 Lead reviewed: SR 74 with qt450. No STEMI CTA Chest (08/29/20) reviewed: No evidence of PTE CT Head (08/29/20) reviewed: No acute abnormality. Nonspecific sellar abnormality Past History Past Medical History: anemia, diabetes, hypertension Medications and Allergies Allergies Allergy/AdvReac Type Severity Reaction Status Date / Time No Known Allergies Allergy Verified 07/20/20 05:07 Home Medications Medication Instructions Recorded Confirmed Last Taken Type metFORMIN [Glucophage] 850 mg PO BID 08/29/20 08/29/20 Unknown History Active Meds: Active Medications Acetaminophen (Acetaminophen 325 Mg Tab) 650 mg PO Q6H PRN PRN Reason: Pain, Mild (1-3) Aspirin (Aspirin Ec 325 Mg Tab) 325 mg PO QDAY [facility] Atorvastatin Calcium (Atorvastatin 40 Mg Tab) 40 mg PO QHS [facility] Last Admin: 08/30/20 00:19 Dose: 40 mg Documented by: Dextrose (Dextrose 50% In Water (25gm) 50 Ml Syringe) 50 ml IV Q30MIN PRN; Protocol PRN Reason: Hypoglycemia Heparin Sodium (Porcine) (Heparin 5,000 Unit/1 Ml Vial) 5,000 unit SUB-Q Q8HR [facility] Last Admin: 08/30/20 00:19 Dose: 5,000 unit Documented by: Hydralazine HCl (Hydralazine 20 Mg/1 Ml Inj) 10 mg IV Q6H PRN PRN Reason: htn Sodium Chloride (Nacl 0.45% 1000 Ml) 1,000 mls @ 100 mls/hr IV DIRECT BRIAN Last Admin: 08/30/20 03:20 Dose: 100 mls/hr Documented by: Ceftriaxone Sodium (Rocephin/Ns 2 Gm/100 Ml) 2 gm in 100 mls @ 200 mls/hr IV Q24HR BRIAN; Protocol Insulin Human Regular (Insulin Regular, Human 100 Units/1 Ml) 0 units SUB-Q ACHS BRIAN; Protocol Metformin HCl (Metformin 850 Mg Tab) 850 mg PO BIDDIAB BRIAN Pantoprazole Sodium (Pantoprazole 40 Mg Tab) 40 mg PO QDAY BRIAN Sodium Chloride (Sodium Chloride 0.9% 10 Ml Flush Syringe) 10 ml IV PRN PRN PRN Reason: LINE FLUSH Tramadol HCl (Tramadol 50 Mg Tab) 50 mg PO Q6H PRN PRN Reason: Pain, Moderate (4-6) Review of Systems Constitutional: no weight loss, no weight gain, no fever, no chills, no sweats Ears, nose, mouth and throat: no ear pain, no ear discharge, no nasal congestion, no nasal discharge, no sinus pressure Cardiovascular: syncope, lightheadedness, no chest pain, no orthopnea, no palpitations, no rapid/irregular heart beat, no edema Respiratory: no cough, no shortness of breath, no dyspnea on exertion Gastrointestinal: no abdominal pain, no nausea, no vomiting, no diarrhea, no constipation Genitourinary Female: no pelvic pain, no flank pain Musculoskeletal: no neck stiffness, no neck pain, no shooting arm pain, no arm numbness/tingling, no low back pain, no shooting leg pain Integumentary: no rash, no pruritis, no redness, no sores, no wounds Neurological: no head injury, no paralysis, no weakness, no parathesias, no numbness, no tingling, no seizures, no syncope Psychiatric: no anxiety Endocrine: no cold intolerance, no heat intolerance Hematologic/Lymphatic: no easy bruising, no easy bleeding Allergic/Immunologic: no urticaria Physical Examination Last Vital Signs Temp 97.9 F 08/30/20 08:26 Pulse 73 08/30/20 08:26 Resp 18 08/30/20 08:26 BP 111/75 08/30/20 08:26 Pulse Ox 98 08/30/20 08:26 General appearance: no acute distress HEENT: Positive: PERRL, Normocephaly, Mucus Membranes Moist Neck: Positive: neck supple, trachea midline Cardiac: Positive: Reg Rate and Rhythm, S1/S2 Lungs: Positive: clear to auscultation, Normal Breath Sounds Neuro: Positive: Grossly Intact Abdomen: Positive: Unremarkable, Soft Skin: Negative: Rash, Wound Musculoskeletal: No Pain Extremities: Present: upper extr. pulses, lower extr. pulses. Absent: edema Results 08/29/20 18:53 08/30/20 12:25 Cardiac Enzymes 08/29/20 Range/Units 18:53 AST 37 (5-40) units/L Coagulation 08/29/20 Range/Units 18:53 PT 13.7 (12.2-14.9) Sec. INR 1.07 (0.87-1.13) APTT 28.9 (24.2-36.6) Sec. Lipids 08/29/20 Range/Units 18:53 Triglycerides 81 (2-149) mg/dL Cholesterol 128 (50-199) mg/dL HDL Cholesterol 68 H (40-59) mg/dL Cholesterol/HDL Ratio 1.88 % CBC 08/29/20 Range/Units 18:53 WBC 14.4 H (4.5-11.0) K/mm3 RBC 4.80 (3.65-5.03) M/mm3 Hgb 13.7 (10.1-14.3) gm/dl Hct 40.3 (30.3-42.9) % Plt Count 354 (140-440) K/mm3 Lymph # (Auto) 0.7 L (1.2-5.4) K/mm3 [place] # (Auto) 0.9 H (0.0-0.8) K/mm3 Eos # (Auto) 0.0 (0.0-0.4) K/mm3 Baso # (Auto) 0.1 (0.0-0.1) K/mm3 Comprehensive Metabolic Panel 08/29/20 Range/Units 18:53 Sodium 137 (137-145) mmol/L Potassium 3.2 L (3.6-5.0) mmol/L Chloride 96.9 L (98-107) mmol/L Carbon Dioxide 28 (22-30) mmol/L BUN 6 L (7-17) mg/dL Creatinine 1.0 (0.6-1.2) mg/dL Glucose 127 H (65-100) mg/dL Calcium 9.7 (8.4-10.2) mg/dL AST 37 (5-40) units/L ALT 20 (7-56) units/L Alkaline Phosphatase 63 (35-129) units/L Total Protein 8.2 (6.3-8.2) g/dL Albumin 4.2 (3.9-5) g/dL - Imaging and Cardiology Echo: pending EKG: report reviewed, image reviewed EKG interpretations - Telemetry EKG Rhythm: Sinus Rhythm - EKG Sinus rhythms and dysrhythmias: sinus rhythm Assessment and Plan This patient is a 35 year old female with a significant hx of NIDDM, Anemia, HTN, polysubstance abuse, and rhabdomyolitis. She is previously unknown to our practice. She presented to [facility] ER with a complaint of general weakness, fatigue, malaise, and syncopal episode. EMS reports pt walked up to [employer] [employer] and asked for EMS for feeling of weakness. Cardiology is consulted for elevated Troponin. She is found to be in Rhabdomyelitis with elevated Creatinine Kinase. Tox screen is positive for cocaine. On exam pt is found walking around her hospital room without dizziness or presyncope. Pt denies chest pain, SOB, Abd Pain, N/V/D, recent illness. Pt denies Tobacco, ETOH. Of note: She reports being seen in [facility] ER for a similar episode 1-2 months prior when she was found to be in DKA. Tele reviewed: SR 76. No events. 12 Lead reviewed: SR 74 with qt450. No STEMI. Rec avoid qt prolonging medication CTA Chest (08/29/20) reviewed: No evidence of PTE CT Head (08/29/20) reviewed: No acute abnormality. Nonspecific sellar abnormality. Neurosx is consulted. Troponin elevation is subacute and trending downwards. Correlate clinically. Continue to trend Umer. Tox screen is positive for cocaine which may be contributing to elevated Troponin and symptoms of weakness. Plan for Lexiscan MPI stress test in am.NPO after midnight. Ddimer is noted to be elevated. CTA Chest is negative for PTE. Echo pending. Creatinine Kinase is noted to be elevated. Management per primary team. Further recs pending clinical course. Will follow. This pt was seen in conjunction with Dr Owen who agrees with this assessment and plan. - Patient Problems (1) Elevated troponin Current Visit: Yes Status: Acute (2) Syncope Current Visit: Yes Status: Acute (3) Rhabdomyolysis Current Visit: Yes Status: Acute (4) Cocaine use Current Visit: Yes Status: Chronic (5) Hypokalemia Current Visit: Yes Status: Acute (6) HTN (hypertension) Current Visit: Yes Status: Chronic (7) Diabetes mellitus Current Visit: Yes Status: Chronic (8) Abnormal CT of brain Current Visit: Yes Status: Acute
--- NOTE | 2020-08-30 10:17 | Progress Note ---
Assessment and Plan Assessment and plan: -- Near syncope Current Visit: Yes Status: Acute Plan to address problem: Follow syncope work-up No new episodes of syncope since admission Cardiology following -- Abnormal CT of brain Current Visit: Yes Status: Acute Plan to address problem: We will put the patient on aspirin 325 mg p.o. daily and Lipitor 40 mg p.o. daily. Will consult PT OT any speech evaluation. 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 Sella protocol with postcontrast imaging could be obtained for further evaluation. Pending neurosurgery evaluation. Patient may have further work-up as outpatient -- SIRS (systemic inflammatory response syndrome) Current Visit: Yes Status: Acute Plan to address problem: IV fluid half-normal saline at the rate of 100 cc/h. Rocephin 1 g IV daily. We do the blood culture urine culture. Recheck CBC in the morning -- Diabetes 1.5, managed as type 2 Current Visit: Yes Status: Acute Plan to address problem: We put the patient insulin sliding scale and diabetic diet. Will we will continue the home medication --Hypokalemia Current Visit: Yes Status: Acute Plan to address problem: Potassium chloride 40 mEq p.o. x1 dose. Recheck BMP in the morning -- Hypomagnesemia Current Visit: Yes Status: Acute Plan to address problem: We are giving 2 g of magnesium. Recheck magnesium in the morning -- Lactic acidosis Current Visit: Yes Status: Acute Plan to address problem: IV fluid half-normal saline at the rate of 100 cc/h. Rocephin 1 g IV daily. We do the blood culture urine culture. Recheck CBC in the morning -- DVT prophylaxis Current Visit: Yes Status: Acute Plan to address problem: Heparin 5000 units subcu every 8 hours for DVT prophylaxis and Protonix 40 mg p.o. daily for GI prophylaxis. Patient is a full code Closely monitor the patient and adjust management as needed Cardiology evaluation recommendations noted and appreciated Patient may have rest of the neuro/neurosurgical work-up as outpatient History Interval history: Patient was admitted with syncope and neuro symptoms Neuro work-up is in progress I have seen and examined the patient at the bedside Patient's chart and medications reviewed Patient feels slightly better Vital signs reviewed Hospitalist Physical - Constitutional Vitals: Temp Pulse Resp BP Pulse Ox 97.9 F 73 18 111/75 98 08/30/20 08:26 08/30/20 08:26 08/30/20 08:26 08/30/20 08:26 08/30/20 08:26 General appearance: Present: no acute distress, well-nourished, obese - EENT Eyes: Present: PERRL, EOM intact - Neck Neck: Present: supple, normal ROM - Respiratory Respiratory effort: normal Respiratory: bilateral: diminished, negative: rales, rhonchi, wheezing - Cardiovascular Rhythm: regular Heart Sounds: Present: S1 & S2 - Extremities Extremities: no ischemia, No edema - Abdominal General gastrointestinal: soft, non-tender, non-distended, normal bowel sounds - Integumentary Integumentary: Present: clear, warm - Psychiatric Psychiatric: appropriate mood/affect, cooperative - Neurologic Neurologic: moves all extremities HEART Score - HEART Score Troponin: Troponin T 0.031 ng/mL (0.00-0.029) H D 08/30/20 05:31 Results - Labs CBC & Chem 7: 08/31/20 04:53 08/31/20 04:53 Labs: Laboratory Last Values WBC 14.4 K/mm3 (4.5-11.0) H 08/29/20 18:53 RBC 4.80 M/mm3 (3.65-5.03) 08/29/20 18:53 Hgb 13.7 gm/dl (10.1-14.3) 08/29/20 18:53 Hct 40.3 % (30.3-42.9) 08/29/20 18:53 MCV 84 fl (79-97) 08/29/20 18:53 MCH 29 pg (28-32) 08/29/20 18:53 MCHC 34 % (30-34) 08/29/20 18:53 RDW 14.0 % (13.2-15.2) 08/29/20 18:53 Plt Count 354 K/mm3 (140-440) 08/29/20 18:53 Lymph % (Auto) 4.6 % (13.4-35.0) L 08/29/20 18:53 Schley % (Auto) 6.6 % (0.0-7.3) 08/29/20 18:53 Eos % (Auto) 0.0 % (0.0-4.3) 08/29/20 18:53 Baso % (Auto) 0.4 % (0.0-1.8) 08/29/20 18:53 Lymph # (Auto) 0.7 K/mm3 (1.2-5.4) L 08/29/20 18:53 Schley # (Auto) 0.9 K/mm3 (0.0-0.8) H 08/29/20 18:53 Eos # (Auto) 0.0 K/mm3 (0.0-0.4) 08/29/20 18:53 Baso # (Auto) 0.1 K/mm3 (0.0-0.1) 08/29/20 18:53 Seg Neutrophils % 88.4 % (40.0-70.0) H 08/29/20 18:53 Seg Neutrophils # 12.7 K/mm3 (1.8-7.7) H 08/29/20 18:53 PT 13.7 Sec. (12.2-14.9) 08/29/20 18:53 INR 1.07 (0.87-1.13) 08/29/20 18:53 APTT 28.9 Sec. (24.2-36.6) 08/29/20 18:53 D-Dimer 763.6 ng/mlDDU (0-234) H 08/29/20 Unknown VBG pH 7.421 (7.320-7.420) H 08/29/20 18:53 Sodium 137 mmol/L (137-145) 08/29/20 18:53 Potassium 3.2 mmol/L (3.6-5.0) L 08/29/20 18:53 Chloride 96.9 mmol/L (98-107) L 08/29/20 18:53 Carbon Dioxide 28 mmol/L (22-30) 08/29/20 18:53 Anion Gap 15 mmol/L 08/29/20 18:53 BUN 6 mg/dL (7-17) L 08/29/20 18:53 Creatinine 1.0 mg/dL (0.6-1.2) 08/29/20 18:53 Estimated GFR > 60 ml/min 08/29/20 18:53 BUN/Creatinine Ratio 6 % 08/29/20 18:53 Glucose 127 mg/dL (65-100) H 08/29/20 18:53 Lactic Acid 3.50 mmol/L (0.7-2.0) H* 08/29/20 18:53 Calcium 9.7 mg/dL (8.4-10.2) 08/29/20 18:53 Magnesium 1.60 mg/dL (1.7-2.3) L 08/29/20 18:53 Total Bilirubin 0.60 mg/dL (0.1-1.2) 08/29/20 18:53 AST 37 units/L (5-40) 08/29/20 18:53 ALT 20 units/L (7-56) 08/29/20 18:53 Alkaline Phosphatase 63 units/L (35-129) 08/29/20 18:53 Ammonia 55.0 umol/L (25-60) 08/29/20 18:53 Total Creatine Kinase 758 units/L (30-135) H 08/29/20 18:53 Troponin T 0.031 ng/mL (0.00-0.029) H D 08/30/20 05:31 Total Protein 8.2 g/dL (6.3-8.2) 08/29/20 18:53 Albumin 4.2 g/dL (3.9-5) 08/29/20 18:53 Albumin/Globulin Ratio 1.1 % 08/29/20 18:53 Triglycerides 81 mg/dL (2-149) 08/29/20 18:53 Cholesterol 128 mg/dL (50-199) 08/29/20 18:53 LDL Cholesterol Direct 54 mg/dL (50-130) 08/29/20 18:53 HDL Cholesterol 68 mg/dL (40-59) H 08/29/20 18:53 Cholesterol/HDL Ratio 1.88 % 08/29/20 18:53 TSH 2.000 mlU/mL (0.270-4.200) 08/29/20 18:53 HCG, Quant < 2 mIU/mL (0-4) 08/29/20 18:53 Urine Color Yellow (Yellow) 08/29/20 18:50 Urine Turbidity Clear (Clear) 08/29/20 18:50 Urine pH 8.0 (5.0-7.0) H 08/29/20 18:50 Ur Specific [place] 1.011 (1.003-1.030) 08/29/20 18:50 Urine Protein 100 mg/dl mg/dL (Negative) 08/29/20 18:50 Urine Glucose (UA) 50 mg/dL (Negative) 08/29/20 18:50 Urine Ketones 20 mg/dL (Negative) 08/29/20 18:50 Urine Blood Sm (Negative) 08/29/20 18:50 Urine Nitrite Neg (Negative) 08/29/20 18:50 Urine Bilirubin Neg (Negative) 08/29/20 18:50 Urine Urobilinogen < 2.0 mg/dL (<2.0) 08/29/20 18:50 Ur Leukocyte Esterase Neg (Negative) 08/29/20 18:50 Urine WBC (Auto) 3.0 /HPF (0.0-6.0) 08/29/20 18:50 Urine RBC (Auto) 1.0 /HPF (0.0-6.0) 08/29/20 18:50 U Epithel Cells (Auto) < 1.0 /HPF (0-13.0) 08/29/20 18:50 Urine Mucus Few /HPF 08/29/20 18:50 Salicylates < 0.3 mg/dL (2.8-20.0) L 08/29/20 18:53 Urine Opiates Screen Negative 08/29/20 19:01 Urine Methadone Screen Negative 08/29/20 19:01 Acetaminophen 5.0 ug/mL (10.0-30.0) L 08/29/20 18:53 Ur Barbiturates Screen Negative 08/29/20 19:01 Ur Phencyclidine Scrn Negative 08/29/20 19:01 Ur Amphetamines Screen Negative 08/29/20 19:01 U Benzodiazepines Scrn Negative 08/29/20 19:01 Urine Cocaine Screen Positive 08/29/20 19:01 U Marijuana (THC) Screen Negative 08/29/20 19:01 Drugs of Abuse Note Disclamer 08/29/20 19:01 Plasma/Serum Alcohol < 0.01 % (0-0.07) 08/29/20 18:53 Microbiology: Microbiology 08/29/20 18:53 Peripheral/Venous Blood Culture - Preliminary Culture in Progress 08/29/20 18:53 Peripheral/Venous Blood Culture - Preliminary Culture in Progress Koroma/IV: Voiding Method Toilet Active Medications - Current Medications Current Medications: Generic Name Dose Route Start Last Admin Trade Name Freq PRN Reason Stop Dose Admin Acetaminophen 650 mg 08/29/20 21:54 Acetaminophen 325 Mg Tab PO Q6H PRN Pain, Mild (1-3) Aspirin 325 mg 08/30/20 10:00 Aspirin Ec 325 Mg Tab PO QDAY BRIAN Atorvastatin Calcium 40 mg 08/29/20 22:00 08/30/20 00:19 Atorvastatin 40 Mg Tab PO 40 mg QHS BRIAN Administration Dextrose 50 ml 08/29/20 22:14 Dextrose 50% In Water (25gm) 50 Ml Syringe IV Q30MIN PRN Hypoglycemia Protocol Heparin Sodium (Porcine) 5,000 unit 08/29/20 22:00 08/30/20 00:19 Heparin 5,000 Unit/1 Ml Vial SUB-Q 5,000 unit Q8HR BRIAN Administration Hydralazine HCl 10 mg 08/29/20 21:59 Hydralazine 20 Mg/1 Ml Inj IV Q6H PRN htn Sodium Chloride 1,000 mls @ 100 mls/hr 08/29/20 22:00 08/30/20 03:20 Nacl 0.45% 1000 Ml IV 100 mls/hr DIRECT BRIAN Administration Ceftriaxone Sodium 2 gm in 100 mls @ 200 mls/hr 08/30/20 10:00 Rocephin/Ns 2 Gm/100 Ml IV Q24HR BRIAN Protocol Insulin Human Lispro 0 unit 08/30/20 11:30 Insulin Lispro 100 Unit/Ml SUB-Q ACHS BRIAN Protocol Insulin Human Regular 0 units 08/30/20 07:30 Insulin Regular, Human 100 Units/1 Ml SUB-Q ACHS BRIAN Protocol Pantoprazole Sodium 40 mg 08/30/20 10:00 Pantoprazole 40 Mg Tab PO QDAY BRIAN Sodium Chloride 10 ml 08/29/20 21:54 Sodium Chloride 0.9% 10 Ml Flush Syringe IV PRN PRN LINE FLUSH Tramadol HCl 50 mg 08/29/20 21:54 Tramadol 50 Mg Tab PO Q6H PRN Pain, Moderate (4-6)
--- NOTE | 2020-08-30 10:23 | Magnetic Resonance Report ---
MR brain wo con INDICATION / CLINICAL INFORMATION: Altered mental status. TECHNIQUE: Multiplanar, multisequence MR images of the brain were obtained. COMPARISON: R CT head from 09/18/2020 and July 14 6020 FINDINGS: INTRACRANIAL: No restricted diffusion. No hemorrhage. Ventricular caliber is normal. No extra-axial c ollection. No mass. No herniation. Major intracranial vascular flow voids are preserved. ORBITS: No significant abnormality of visualized orbits. SINUSES / MASTOIDS: Lobulated lesion is seen within the left sphenoid sinus as previous described. Th ere is dehiscence of the floor of the sella which is better appreciated on prior MRI. The lesion demo nstrates intermediate T2 signal intensity and T1 hypointensity. No restricted diffusion. The lesion a ppears to have a broad base attachment to the septum of the sphenoid sinus. The sella is not expanded . The lesion does not extend into the [place]. There is no herniation of the medial temporal lobes or straight gyri. Given the T2 signal, this is not classic for an encephalocele considering it should byrd ve some T2 signal hyperintensity from CSF. Additionally it appears as if the pituitary gland is laly lly situated with in the sella and the infundibulum is midline. Polyps are more rare in the sphenoid sinus and also generally demonstrates T2 signal hyperintensity. ADDITIONAL FINDINGS: None. IMPRESSION: 1. Indeterminate lobulated left sphenoid lesion which is thought to be most likely arising within the sphenoid and resulting in dehiscence of the sella and possibly mildly extending into the basal sella . MRI skull base protocol/sella protocol with post contrast imaging could be obtained to further eval uate. Alternatively, direct visualization could be considered. Signer Name: Jordon Armas MD Signed: 08/30/2020 10:19 AM Workstation Name: [id number]
--- NOTE | 2020-08-30 11:33 | Vascular Lab Report ---
DUPLEX DOPPLER LOWER EXTREMITY VEINS, BILATERAL INDICATION / CLINICAL INFORMATION: Elevated D-dimers/evaluate for DVT. TECHNIQUE: Duplex doppler imaging was performed through the veins of both lower extremities using venous sreekanth ted and other maneuvers. COMPARISON: None available. FINDINGS: RIGHT COMMON FEMORAL VEIN: Negative. RIGHT FEMORAL VEIN: Negative. RIGHT POPLITEAL VEIN: Negative. RIGHT CALF VEINS: Negative. LEFT COMMON FEMORAL VEIN: Negative. LEFT FEMORAL VEIN: Negative. LEFT POPLITEAL VEIN: Negative. LEFT CALF VEINS: Negative. ADDITIONAL FINDINGS: None. IMPRESSION: 1. No sonographic evidence for DVT in either lower extremity. Signer Name: Jared Elliott MD Signed: 08/30/2020 11:29 AM Workstation Name: [id number]
[2020-08-30] MEDS: INSULIN LISPRO 100 UNIT/ML SUB-Q SCH ×3 (12:30→22:00)
--- NOTE | 2020-08-30 12:51 | Vascular Lab Report ---
DUPLEX DOPPLER ULTRASOUND CAROTID, BILATERAL INDICATION / CLINICAL INFORMATION: syncope. COMPARISON: None available. FINDINGS: RIGHT CAROTID: No significant abnormality. - PLAQUE ESTIMATE (%): < 50% - CCA velocity: 86 cm/sec. - ICA peak systolic velocity: 82 cm/sec. - ICA/CCA PSV Ratio: 0.95 Right Vertebral Artery: Antegrade flow. LEFT CAROTID: No significant abnormality. - PLAQUE ESTIMATE (%): < 50% - CCA velocity: 106 cm/sec. - ICA peak systolic velocity: 81 cm/sec. - ICA/CCA PSV Ratio: 0.76 Left Vertebral Artery: Antegrade flow. IMPRESSION: 1. Right Internal Carotid Artery: Less than 50% diameter stenosis. 2. Left Internal Carotid Artery: Less than 50% diameter stenosis. 3. Unremarkable carotid Doppler ultrasound. Velocity criteria are extrapolated from diameter data as defined by the Society of Radiologists in Ul trasound Consensus Conference, Radiology 2003; 229;340-346. NO STENOSIS (NORMAL) - Plaque = none; ICA PSV < 125 cm/sec; ICA/CCA PSV Ratio < 2.0 <50% STENOSIS - Plaque < 50%; ICA PSV < 125 cm/sec; ICA/CCA PSV Ratio < 2.0 50-69% STENOSIS - Plaque > 50%; ICA PSV = 125-230 cm/sec; ICA/CCA PSV Ratio = 2.0-4.0 >70% BUT <100% STENOSIS - Plaque > 50%; ICA PSV > 230 cm/sec; ICA/CCA PSV Ratio > 4.0 NEAR OCCLUSION - Plaque = visible lumen; ICA PSV = high/low/none; ICA/CCA PSV Ratio = variable TOTAL OCCLUSION - Plaque = no lumen; ICA PSV = none; ICA/CCA PSV Ratio = N/A Scribed by: Joyce Almeida RDMS, RVT Scribed: 08/30/2020 11:10 AM Signer Name: Jaya Stone MD Signed: 08/30/2020 12:46 PM Workstation Name: [id number]
[2020-08-30] MEDS: PANTOPRAZOLE 40 MG TAB PO SCH (13:03)
[2020-08-30] MEDS: ASPIRIN EC 325 MG TAB PO SCH (13:03)
[2020-08-30 13:17] LABS: BUN/Creatinine Ratio 5; Blood Urea Nitrogen 4 mg/dL (7-17); Calcium 8.8 mg/dL (8.4-10.2); Hemolysis Index 15
[2020-08-30] MEDS: cefTRIAXone/NS 2 GM/100 ML 2 GM/100 ML BAG IV SCH (13:40)
[2020-08-31] MEDS: SODIUM CHLORIDE 0.45% 1000 ML 1,000 ML IV SCH
[2020-08-31 05:27] LABS: Hemoglobin 10.9 gm/dl (10.1-14.3); Mean Corpuscular HGB Conc 34 % (30-34); Mean Corpuscular Volume 85 fl (79-97); Platelet Count 230 K/mm3 (140-440); Red Blood Count 3.77 M/mm3 (3.65-5.03); Red Cell Distribution Width 13.7 % (13.2-15.2)
[2020-08-31 05:42] LABS: BUN/Creatinine Ratio 5; Blood Urea Nitrogen 4 mg/dL (7-17); Calcium 8.2 mg/dL (8.4-10.2); Hemolysis Index 2
[2020-08-31] MEDS: HEPARIN 5,000 UNIT/1 ML VIAL SUB-Q SCH (05:45)
[2020-08-31] MEDS ORDERED: REGADENOSON 0.4 MG/5 ML INJ IV ONE (08:13)
[2020-08-31] MEDS ORDERED: POTASSIUM CHLORIDE ER 20 MEQ TAB PO NR (08:15)
[2020-08-31] MEDS: INSULIN LISPRO 100 UNIT/ML SUB-Q SCH ×2 (08:30→13:17)
--- NOTE | 2020-08-31 09:17 | Progress Note ---
Assessment and Plan Assessment and plan: -- Near syncope Current Visit: Yes Status: Acute Plan to address problem: Follow syncope work-up Carotid Doppler; less than 50% stenosis bilateral Echo; EF normal range No new episodes of syncope since admission Cardiology following; patient refused stress test Patient refused physical therapy -- Abnormal CT of brain Current Visit: Yes Status: Acute Plan to address problem: We will put the patient on aspirin 325 mg p.o. daily and Lipitor 40 mg p.o. daily. 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 Sella protocol with postcontrast imaging could be obtained for further evaluation. Pending neurosurgery evaluation. Patient may have further work-up as outpatient -- SIRS (systemic inflammatory response syndrome) Current Visit: Yes Status: Acute Plan to address problem: Empiric Rocephin, monitor -- Diabetes 1.5, managed as type 2 Current Visit: Yes Status: Acute Plan to address problem: Accu-Chek sliding scale coverage ADA diet Metformin held due to normal range of blood sugars Due to CTA chest. Will resume Metformin as needed --Hypokalemia Current Visit: Yes Status: Acute Plan to address problem: Potassium chloride 40 mEq p.o. x1 dose today. Closely monitor electrolytes -- Hypomagnesemia Current Visit: Yes Status: Acute Plan to address problem: Received magnesium sulfate, magnesium levels corrected -- Lactic acidosis Current Visit: Yes Status: Acute Plan to address problem: Resolved -- DVT prophylaxis Current Visit: Yes Status: Acute Plan to address problem: Heparin 5000 units subcu every 8 hours for DVT prophylaxis and Protonix 40 mg p.o. daily for GI prophylaxis. Patient is a full code Patient is refusing PT Follow cardiology recommendations Possible outpatient neurosurgical/neuro for further evaluation and management Possible discharge home today/tomorrow pending cardiology recommendations History Interval history: I seen and examined the patient at the bedside this morning Patient's chart and medications reviewed Patient was scheduled for stress test today by cardiology Patient is n.p.o. status, however patient refused the stress test Patient denies any chest pain or shortness of breath Complains of some headache Vital signs reviewed stable Hospitalist Physical - Constitutional Vitals: Temp Pulse Resp BP Pulse Ox 97.8 F 69 18 106/65 100 08/31/20 07:32 08/31/20 09:03 08/31/20 07:32 08/31/20 09:03 08/31/20 07:32 General appearance: Present: no acute distress, well-nourished, obese - EENT Eyes: Present: PERRL, EOM intact - Neck Neck: Present: supple, normal ROM - Respiratory Respiratory effort: normal Respiratory: bilateral: diminished, negative: rales, rhonchi, wheezing - Cardiovascular Rhythm: regular Heart Sounds: Present: S1 & S2 - Extremities Extremities: no ischemia, No edema - Abdominal General gastrointestinal: soft, non-tender, non-distended, normal bowel sounds - Integumentary Integumentary: Present: clear, warm - Psychiatric Psychiatric: appropriate mood/affect, cooperative - Neurologic Neurologic: CNII-XII intact, moves all extremities HEART Score - HEART Score Troponin: Troponin T 0.019 ng/mL (0.00-0.029) 08/31/20 04:53 Results - Labs CBC & Chem 7: 08/31/20 04:53 08/31/20 04:53 Labs: Laboratory Last Values WBC 5.4 K/mm3 (4.5-11.0) 08/31/20 04:53 RBC 3.77 M/mm3 (3.65-5.03) 08/31/20 04:53 Hgb 10.9 gm/dl (10.1-14.3) 08/31/20 04:53 Hct 32.0 % (30.3-42.9) D 08/31/20 04:53 MCV 85 fl (79-97) 08/31/20 04:53 MCH 29 pg (28-32) 08/31/20 04:53 MCHC 34 % (30-34) 08/31/20 04:53 RDW 13.7 % (13.2-15.2) 08/31/20 04:53 Plt Count 230 K/mm3 (140-440) 08/31/20 04:53 Lymph % (Auto) 4.6 % (13.4-35.0) L 08/29/20 18:53 Mora % (Auto) 6.6 % (0.0-7.3) 08/29/20 18:53 Eos % (Auto) 0.0 % (0.0-4.3) 08/29/20 18:53 Baso % (Auto) 0.4 % (0.0-1.8) 08/29/20 18:53 Lymph # (Auto) 0.7 K/mm3 (1.2-5.4) L 08/29/20 18:53 Mora # (Auto) 0.9 K/mm3 (0.0-0.8) H 08/29/20 18:53 Eos # (Auto) 0.0 K/mm3 (0.0-0.4) 08/29/20 18:53 Baso # (Auto) 0.1 K/mm3 (0.0-0.1) 08/29/20 18:53 Seg Neutrophils % 88.4 % (40.0-70.0) H 08/29/20 18:53 Seg Neutrophils # 12.7 K/mm3 (1.8-7.7) H 08/29/20 18:53 PT 13.7 Sec. (12.2-14.9) 08/29/20 18:53 INR 1.07 (0.87-1.13) 08/29/20 18:53 APTT 28.9 Sec. (24.2-36.6) 08/29/20 18:53 D-Dimer 763.6 ng/mlDDU (0-234) H 08/29/20 Unknown VBG pH 7.421 (7.320-7.420) H 08/29/20 18:53 Sodium 138 mmol/L (137-145) 08/31/20 04:53 Potassium 3.4 mmol/L (3.6-5.0) L 08/31/20 04:53 Chloride 102.7 mmol/L (98-107) 08/31/20 04:53 Carbon Dioxide 26 mmol/L (22-30) 08/31/20 04:53 Anion Gap 13 mmol/L 08/31/20 04:53 BUN 4 mg/dL (7-17) L 08/31/20 04:53 Creatinine 0.8 mg/dL (0.6-1.2) 08/31/20 04:53 Estimated GFR > 60 ml/min 08/31/20 04:53 BUN/Creatinine Ratio 5 % 08/31/20 04:53 Glucose 113 mg/dL (65-100) H 08/31/20 04:53 POC Glucose 93 mg/dL (70-105) 08/30/20 20:27 Lactic Acid 0.80 mmol/L (0.7-2.0) 08/30/20 12:25 Calcium 8.2 mg/dL (8.4-10.2) L 08/31/20 04:53 Magnesium 1.60 mg/dL (1.7-2.3) L 08/29/20 18:53 Total Bilirubin 0.60 mg/dL (0.1-1.2) 08/29/20 18:53 AST 37 units/L (5-40) 08/29/20 18:53 ALT 20 units/L (7-56) 08/29/20 18:53 Alkaline Phosphatase 63 units/L (35-129) 08/29/20 18:53 Ammonia 55.0 umol/L (25-60) 08/29/20 18:53 Total Creatine Kinase 758 units/L (30-135) H 08/29/20 18:53 Troponin T 0.019 ng/mL (0.00-0.029) 08/31/20 04:53 Total Protein 8.2 g/dL (6.3-8.2) 08/29/20 18:53 Albumin 4.2 g/dL (3.9-5) 08/29/20 18:53 Albumin/Globulin Ratio 1.1 % 08/29/20 18:53 Triglycerides 81 mg/dL (2-149) 08/29/20 18:53 Cholesterol 128 mg/dL (50-199) 08/29/20 18:53 LDL Cholesterol Direct 54 mg/dL (50-130) 08/29/20 18:53 HDL Cholesterol 68 mg/dL (40-59) H 08/29/20 18:53 Cholesterol/HDL Ratio 1.88 % 08/29/20 18:53 TSH 2.000 mlU/mL (0.270-4.200) 08/29/20 18:53 HCG, Quant < 2 mIU/mL (0-4) 08/29/20 18:53 Urine Color Yellow (Yellow) 08/29/20 18:50 Urine Turbidity Clear (Clear) 08/29/20 18:50 Urine pH 8.0 (5.0-7.0) H 08/29/20 18:50 Ur Specific [place] 1.011 (1.003-1.030) 08/29/20 18:50 Urine Protein 100 mg/dl mg/dL (Negative) 08/29/20 18:50 Urine Glucose (UA) 50 mg/dL (Negative) 08/29/20 18:50 Urine Ketones 20 mg/dL (Negative) 08/29/20 18:50 Urine Blood Sm (Negative) 08/29/20 18:50 Urine Nitrite Neg (Negative) 08/29/20 18:50 Urine Bilirubin Neg (Negative) 08/29/20 18:50 Urine Urobilinogen < 2.0 mg/dL (<2.0) 08/29/20 18:50 Ur Leukocyte Esterase Neg (Negative) 08/29/20 18:50 Urine WBC (Auto) 3.0 /HPF (0.0-6.0) 08/29/20 18:50 Urine RBC (Auto) 1.0 /HPF (0.0-6.0) 08/29/20 18:50 U Epithel Cells (Auto) < 1.0 /HPF (0-13.0) 08/29/20 18:50 Urine Mucus Few /HPF 08/29/20 18:50 Salicylates < 0.3 mg/dL (2.8-20.0) L 08/29/20 18:53 Urine Opiates Screen Negative 08/29/20 19:01 Urine Methadone Screen Negative 08/29/20 19:01 Acetaminophen 5.0 ug/mL (10.0-30.0) L 08/29/20 18:53 Ur Barbiturates Screen Negative 08/29/20 19:01 Ur Phencyclidine Scrn Negative 08/29/20 19:01 Ur Amphetamines Screen Negative 08/29/20 19:01 U Benzodiazepines Scrn Negative 08/29/20 19:01 Urine Cocaine Screen Positive 08/29/20 19:01 U Marijuana (THC) Screen Negative 08/29/20 19:01 Drugs of Abuse Note Disclamer 08/29/20 19:01 Plasma/Serum Alcohol < 0.01 % (0-0.07) 08/29/20 18:53 Microbiology: Microbiology 08/29/20 18:53 Peripheral/Venous Blood Culture - Preliminary NO GROWTH AFTER 24 HOURS 08/29/20 18:53 Peripheral/Venous Blood Culture - Preliminary NO GROWTH AFTER 24 HOURS Koroma/IV: Voiding Method Toilet Active Medications - Current Medications Current Medications: Generic Name Dose Route Start Last Admin Trade Name Freq PRN Reason Stop Dose Admin Acetaminophen 650 mg 08/29/20 21:54 Acetaminophen 325 Mg Tab PO Q6H PRN Pain, Mild (1-3) Aspirin 325 mg 08/30/20 10:00 08/30/20 13:03 Aspirin Ec 325 Mg Tab PO 325 mg QDAY BRIAN Administration Atorvastatin Calcium 40 mg 08/29/20 22:00 08/30/20 21:54 Atorvastatin 40 Mg Tab PO 40 mg QHS BRIAN Administration Dextrose 50 ml 08/29/20 22:14 Dextrose 50% In Water (25gm) 50 Ml Syringe IV Q30MIN PRN Hypoglycemia Protocol Heparin Sodium (Porcine) 5,000 unit 08/29/20 22:00 08/31/20 05:45 Heparin 5,000 Unit/1 Ml Vial SUB-Q 5,000 unit Q8HR BRIAN Administration Hydralazine HCl 10 mg 08/29/20 21:59 Hydralazine 20 Mg/1 Ml Inj IV Q6H PRN htn Sodium Chloride 1,000 mls @ 100 mls/hr 08/29/20 22:00 08/31/20 00:00 Nacl 0.45% 1000 Ml IV 100 mls/hr DIRECT BRIAN Administration Ceftriaxone Sodium 2 gm in 100 mls @ 200 mls/hr 08/30/20 10:00 08/30/20 14:10 Rocephin/Ns 2 Gm/100 Ml IV Infused Q24HR BRIAN Infusion Protocol Insulin Human Lispro 0 unit 08/30/20 11:30 08/30/20 22:00 Insulin Lispro 100 Unit/Ml SUB-Q Not Given ACHS BRIAN Protocol Pantoprazole Sodium 40 mg 08/30/20 10:00 08/30/20 13:03 Pantoprazole 40 Mg Tab PO 40 mg QDAY BRIAN Administration Potassium Chloride 40 meq 08/31/20 08:15 Potassium Chloride Er 20 Meq Tab PO 08/31/20 12:00 ONCE NR Sodium Chloride 10 ml 08/29/20 21:54 Sodium Chloride 0.9% 10 Ml Flush Syringe IV PRN PRN LINE FLUSH Tramadol HCl 50 mg 08/29/20 21:54 Tramadol 50 Mg Tab PO Q6H PRN Pain, Moderate (4-6) Nutrition/Malnutrition Assess - Dietary Evaluation Nutrition/Malnutrition Findings: Nutrition Notes Start: 08/30/20 14:02 Freq: Status: Active Protocol: Document 08/30/20 14:02 CW (Rec: 08/30/20 14:09 CW [id number]) Nutrition Notes Need for Assessment generated from: MD Order,Education Initial or Follow up Brief Note Current Diagnosis Diabetes,Hypertension Other Pertinent Diagnosis drug abuse, Current Diet NPO Labs/Tests BG 127 on admission Pertinent Medications NS 1/2 at 100 ml/hr KCl 10 mEq at 100 ml/hr Kdur Height 5 ft 9 in Weight 109.3 kg [place] Body Weight (kg) 65.90 BMI 35.6 Weight change and time frame 8.5% weight gain x 1.5 months ago (100 kg on 07/20/2020) Weight Status Obese Subjective/Other Information MD consult for diet education. pt previously received diet education by our RD team on . Pt reports remembering diet education and understanding it. Pt did not want a refresher course on diabetes nutrition therapy. Pt however accepted handout for later reading. PO intake for lunch was excellent. Weight has increased since last admission Current % PO Good (75-100%) Nutrition Intervention Change Diet Order: Continue Consistent Carbohydrate diet Teaching Recipient Patient Learning Readiness Poor Teaching Methods Discussion,Handout Barriers to Learning No Barriers RD phone number provided Yes Patient aware of follow up options Yes Anticipated Discharge Needs: Consistent Carbohydrate Diet Revisit per MD consult or patient Sign Off request:
--- NOTE | 2020-08-31 09:52 | Progress Note ---
Assessment and Plan This patient is a 35 year old female with a significant hx of NIDDM, Anemia, HTN, polysubstance abuse, and rhabdomyolitis. She is previously unknown to our practice. She presented to [facility] with a complaint of general weakness, fatigue, malaise, and syncopal episode. EMS reports pt walked [place] to [place] [employer] and asked for EMS for feeling of weakness. Cardiology is consulted for elevated Troponin. She is found to be in Rhabdomyelitis with elevated Creatinine Kinase. Tox screen is positive for cocaine. On exam pt is found walking around her hospital room without dizziness or presyncope. Pt denies chest pain, SOB, Abd Pain, N/V/D, recent illness. Pt denies Tobacco, ETOH. Of note: She reports being seen in [facility] ER for a similar episode 1-2 months prior when she was found to be in DKA. Pt is resting comfortably in bed. No new complaints. No CP or SOB overnight. Tele reviewed: SR 67. No events overnight. Cardiology is consulted for syncope of unknown cause. Echo (08/30/20) reviewed: EF 55-60%. LV function is normal. AMI is ruled out. Troponin is normalized from previous nonspecific elevation. Carotid US shows <50% occlusion. TSH normal. Lexiscan is recommended for ischemic evaluation. Indications, risks and benefits were discussed at bedside. Pt declines to proceed with testing at this time. Orthostatic BP assessment is negative for hypotension, unremarkable. Ddimer is noted to be elevated. Further assessment per primary team. Continue to monitor telemetry. Creatinine Kinase is noted to be elevated. Management per primary team. 12 Lead reviewed: SR 74 with qt450. No STEMI. Rec avoid qt prolonging medication CTA Chest (08/29/20) reviewed: No evidence of PTE CT Head (08/29/20) reviewed: No acute abnormality. Nonspecific sellar abnormality. Neurosx is consulted. Tox screen is positive for cocaine. Pt is in stable cardiac condition. Syncopal episode appears to be noncardiac in origin. Lexiscan MPI stress test was recommended for further evaluation, but pt declined testing. This may be pursued in the outpatient setting if pt decides to proceed. Pt may discharge from cardiology standpoint. Pt should f/u with Dr Owen in our office within 1-2 weeks of discharge. This pt was seen in conjunction with Dr Owen who agrees with this assessment and plan. - Patient Problems (1) Elevated troponin Status: Acute (2) Syncope Status: Acute (3) Rhabdomyolysis Status: Acute (4) Cocaine use Status: Chronic (5) Hypokalemia Status: Acute (6) HTN (hypertension) Status: Chronic (7) Diabetes mellitus Status: Chronic (8) Abnormal CT of brain Status: Acute Subjective Date of service: 08/31/20 Principal diagnosis: Syncope Interval history: Pt is resting comfortably in bed. No new complaints. No CP or SOB overnight. Tele reviewed: SR 67. No events overnight. Objective Last Vital Signs Temp 97.8 F 08/31/20 07:32 Pulse 69 08/31/20 09:03 Resp 18 08/31/20 07:32 BP 106/65 08/31/20 09:03 Pulse Ox 100 08/31/20 07:32 - Physical Examination HEENT: Positive: PERRL, Normocephaly, Mucus Membranes Moist Neck: Positive: neck supple, trachea midline Cardiac: Positive: Reg Rate and Rhythm, S1/S2 Lungs: Positive: clear to auscultation, Normal Breath Sounds Neuro: Positive: Grossly Intact Abdomen: Positive: Unremarkable, Soft Skin: Negative: Rash, Wound Musculoskeletal: No Pain Extremities: Present: upper extr. pulses, lower extr. pulses. Absent: edema - Labs and Meds CBC 08/31/20 Range/Units 04:53 WBC 5.4 (4.5-11.0) K/mm3 RBC 3.77 (3.65-5.03) M/mm3 Hgb 10.9 (10.1-14.3) gm/dl Hct 32.0 D (30.3-42.9) % Plt Count 230 (140-440) K/mm3 Comprehensive Metabolic Panel 08/30/20 08/31/20 Range/Units 12:25 04:53 Sodium 137 138 (137-145) mmol/L Potassium 3.7 3.4 L (3.6-5.0) mmol/L Chloride 99.7 102.7 (98-107) mmol/L Carbon Dioxide 26 26 (22-30) mmol/L BUN 4 L 4 L (7-17) mg/dL Creatinine 0.8 0.8 (0.6-1.2) mg/dL Glucose 112 H 113 H (65-100) mg/dL Calcium 8.8 8.2 L (8.4-10.2) mg/dL - Imaging and Cardiology EKG: report reviewed, image reviewed Echo: report reviewed - Telemetry EKG Rhythm: Sinus Rhythm - EKG Sinus rhythms and dysrhythmias: sinus rhythm
[2020-08-31] MEDS: ASPIRIN EC 325 MG TAB PO SCH (10:50)
[2020-08-31] MEDS: PANTOPRAZOLE 40 MG TAB PO SCH (10:50)
--- NOTE | 2020-08-31 11:21 | Electrocardiograph Report ---
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
[2020-08-31] MEDS: cefTRIAXone/NS 2 GM/100 ML 2 GM/100 ML BAG IV SCH (11:25)
--- NOTE | 2020-08-31 11:26 | Electrocardiograph Report ---
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
--- NOTE | 2020-08-31 11:33 | Electrocardiograph Report ---
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
[2020-08-31 12:11] VITALS: BP 109/72
--- NOTE | 2020-08-31 12:51 | Discharge Summary ---
Providers - Providers Date of Admission: 08/29/20 21:41 Date of discharge: 08/31/20 Attending physician: CLINT VILLELA 08/29/20 Consult to Cardiac Rehabilitation [CONS] Routine Reason For Exam: Phase I 08/29/20 21:29 Consult to Physician [CONS] Urgent Comment: Dr. Bartlett spoke with Dr. Owen @ [id number] Consulting Provider: ELOISE OWEN Physician Instructions: Reason For Exam: elevated troponin 08/29/20 21:38 Consult to Physician [CONS] Urgent Comment: Dr. Bartlett spoke with Dr. Sam @ 0856 Consulting Provider: DONNELL SAM II Physician Instructions: Reason For Exam: sellar abnormality 08/29/20 21:59 Physical Therapy Evaluation and Treat [CONS] Routine Comment: Reason For Exam: gait training 08/29/20 22:14 Consult to Dietitian/Nutrition [CONS] Routine Physician Instructions: Reason For Exam: Reason for Consult: Diet education Primary care physician: DIRECTOR [employer] Hospitalization Condition: Serious Hospital course: -- Near syncope Current Visit: Yes Status: Acute Plan to address problem: Follow syncope work-up Carotid Doppler; less than 50% stenosis bilateral Echo; EF normal range No new episodes of syncope since admission Cardiology following; patient refused stress test Patient refused physical therapy -- Abnormal CT of brain Current Visit: Yes Status: Acute Plan to address problem: We will put the patient on aspirin 325 mg p.o. daily and Lipitor 40 mg p.o. daily. 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 Sella protocol with postcontrast imaging could be obtained for further evaluation. Pending neurosurgery evaluation. Patient may have further work-up as outpatient -- SIRS (systemic inflammatory response syndrome) Current Visit: Yes Status: Acute Plan to address problem: Empiric Rocephin, monitor -- Diabetes 1.5, managed as type 2 Current Visit: Yes Status: Acute Plan to address problem: Accu-Chek sliding scale coverage ADA diet Metformin held due to normal range of blood sugars Due to CTA chest. Will resume Metformin as needed --Hypokalemia Current Visit: Yes Status: Acute Plan to address problem: Potassium chloride 40 mEq p.o. x1 dose today. Closely monitor electrolytes -- Hypomagnesemia Current Visit: Yes Status: Acute Plan to address problem: Received magnesium sulfate, magnesium levels corrected -- Lactic acidosis Current Visit: Yes Status: Acute Plan to address problem: Resolved -- DVT prophylaxis Current Visit: Yes Status: Acute Plan to address problem: Heparin 5000 units subcu every 8 hours for DVT prophylaxis and Protonix 40 mg p.o. daily for GI prophylaxis. Patient is a full code Patient is refusing PT Follow cardiology recommendations Possible outpatient neurosurgical/neuro for further evaluation and management Possible discharge home today/tomorrow pending cardiology recommendations Disposition: DC-01 TO HOME OR SELFCARE Exam - Constitutional Vitals: Temp Pulse Resp BP Pulse Ox 98.1 F 66 18 109/72 100 08/31/20 11:36 08/31/20 11:36 08/31/20 11:36 08/31/20 11:36 08/31/20 11:36 Plan Additional Instructions: If you have worsening symptoms contact MD or go to emergency room. Fall precautions. Advised to follow with private lens molding equipment operator and private neuro surgeon per schedule. Resume Metformin if your blood sugars are high or check with your primary care physician Follow up with: DONNELL SAM II, MD [Staff Physician] - 3 Days PRIMARY CARE, [Primary Care Provider] - 3-5 Days ELOISE OWEN MD [Staff Physician] - 7 Days Prescriptions: cefUROXime [Ceftin] 250 mg PO Q12H #10 tablet Pantoprazole [Protonix TAB] 40 mg PO QDAY #14 tablet traMADoL [Ultram 50 MG tab] 50 mg PO Q6H PRN #12 tablet PRN Reason: Pain, Moderate (4-6)
== END 2020-08-31 13:34 | disposition home or self-care (01) ==
LOC: ED 17:50 → 4A 21:41
PROVIDERS: ADMIT Hospitalist; ATTEND Internal Medicine
DX: R55 Syncope and collapse (principal); R65.10 Systemic inflammatory response syndrome (SIRS) of non-infectious origin without acute organ dysfunction; R51.9 Headache, unspecified; R77.8 Other specified abnormalities of plasma proteins; E87.6 Hypokalemia; E87.2 Acidosis; E83.42 Hypomagnesemia; I10 Essential (primary) hypertension; E11.9 Type 2 diabetes mellitus without complications; R93.0 Abnormal findings on diagnostic imaging of skull and head, not elsewhere classified; M62.82 Rhabdomyolysis; D64.9 Anemia, unspecified; F14.90 Cocaine use, unspecified, uncomplicated; Z79.82 Long term (current) use of aspirin; Z79.4 Long term (current) use of insulin; Z79.899 Other long term (current) drug therapy
CPT/HCPCS: 36415; 70450; 70551; 71275; 80048; 80053; 80061; 80307; 81001; 82140; 82550; 82805; 82962; 83735; 84443; 84484; 84702; 85025; 85027; 85379; 85610; 85730; 87040; 87086; 93005; 93306; 93880; 93970; 96361; 96365; 96366; 96367; 96368; 96372; 96375; 99291; A9270; G0378; J0696; J1200; J1644; J2765; J3475; J3480; J7030; Q9967; 80320; G0480

== ENCOUNTER 2020-09-25 00:50 | Emergency (ER) | payer MEDICARE ==
[2020-09-25] MEDS ORDERED: SODIUM CHLORIDE 0.9% 1000 ML 1,000 ML IV ONE (03:10)
--- NOTE | 2020-09-25 03:20 | Emergency Department Report ---
ED Dizziness HPI - General Chief Complaint: Psych Stated Complaint: SUBSTANCE ABUSE Time Seen by Provider: 09/25/20 03:10 Source: patient, EMS Mode of arrival: Ambulatory Limitations: No Limitations - History of Present Illness Initial Comments: 35-year-old -[place] female presents the ED with dizziness, brought by EMS, found wandering the streets naked after doing drugs. Patient denies any SI or HI. Complains of generalized weakness, mild dizziness, no focal weakness. History of diabetes, drug use. MD Complaint: dizziness -: Gradual - Related Data Home Medications Medication Instructions Recorded Confirmed Last Taken metFORMIN [Glucophage] 850 mg PO BID 08/29/20 08/29/20 Unknown Previous Rx's Medication Instructions Recorded Last Taken Type Pantoprazole [Protonix TAB] 40 mg PO QDAY #14 tablet 08/31/20 Unknown Rx cefUROXime [Ceftin] 250 mg PO Q12H #10 tablet 08/31/20 Unknown Rx traMADoL [Ultram 50 MG tab] 50 mg PO Q6H PRN #12 tablet 08/31/20 Unknown Rx Allergies Allergy/AdvReac Type Severity Reaction Status Date / Time No Known Allergies Allergy Verified 07/20/20 05:07 ED Review of Systems ROS: Stated complaint: SUBSTANCE ABUSE Other details as noted in HPI Constitutional: denies: chills, fever Eyes: denies: eye pain, eye discharge, vision change ENT: denies: ear pain, throat pain Respiratory: denies: cough, shortness of breath, wheezing Cardiovascular: denies: chest pain, palpitations Endocrine: no symptoms reported Gastrointestinal: denies: abdominal pain, nausea, diarrhea Genitourinary: denies: urgency, dysuria, discharge Musculoskeletal: denies: back pain, joint swelling, arthralgia Skin: denies: rash, lesions Neurological: other (dizziness). denies: headache, weakness, paresthesias Psychiatric: denies: anxiety, depression Hematological/Lymphatic: denies: easy bleeding, easy bruising ED Past Medical Hx - Past Medical History Hx Hypertension: Yes Hx Diabetes: Yes Hx Renal Disease: No - Social History Smoking Status: Never Smoker Substance Use Type: None - Medications Home Medications: Home Medications Medication Instructions Recorded Confirmed Last Taken Type metFORMIN [Glucophage] 850 mg PO BID 08/29/20 08/29/20 Unknown History Pantoprazole [Protonix TAB] 40 mg PO QDAY #14 tablet 08/31/20 Unknown Rx cefUROXime [Ceftin] 250 mg PO Q12H #10 tablet 08/31/20 Unknown Rx traMADoL [Ultram 50 MG tab] 50 mg PO Q6H PRN #12 tablet 08/31/20 Unknown Rx ED Physical Exam - General Limitations: No Limitations General appearance: alert, in no apparent distress - Head Head exam: Present: atraumatic, normocephalic - Eye Eye exam: Present: normal appearance - ENT ENT exam: Present: mucous membranes moist - Neck Neck exam: Present: normal inspection - Respiratory Respiratory exam: Present: normal lung sounds bilaterally. Absent: respiratory distress - Cardiovascular Cardiovascular Exam: Present: regular rate, normal rhythm. Absent: systolic murmur, diastolic murmur, rubs, gallop - GI/Abdominal GI/Abdominal exam: Present: soft, normal bowel sounds - Extremities Exam Extremities exam: Present: normal inspection - Back Exam Back exam: Present: normal inspection - Neurological Exam Neurological exam: Present: alert, oriented X3 - Psychiatric Psychiatric exam: Present: normal affect, normal mood - Skin Skin exam: Present: warm, dry, intact, normal color. Absent: rash ED Course Vital Signs 09/25/20 09/25/20 01:36 04:38 Temperature 98.2 F Pulse Rate 95 H Respiratory 18 20 Rate Blood Pressure 128/85 O2 Sat by Pulse 97 99 Oximetry ED Medical Decision Making - Lab Data Result diagrams: 09/25/20 03:20 09/25/20 03:20 Critical care attestation.: If time is entered above; I have spent that time in minutes in the direct care of this critically ill patient, excluding procedure time. ED Disposition Clinical Impression: Drug abuse, Dizziness Disposition: DC-01 TO HOME OR SELFCARE Is pt being admited?: No Condition: Stable Referrals: PRIMARY CARE,MD [Primary Care Provider] - 3-5 Days
[2020-09-25 03:59] LABS: Basophils % (Auto) 0.2 % (0.0-1.8); Lymphocytes % (Auto) 10.2 % (13.4-35.0); Mean Corpuscular HGB Conc 34 % (30-34); Mean Corpuscular Volume 84 fl (79-97); Monocytes # (Auto) 0.8 K/mm3 (0.0-0.8); Monocytes % (Auto) 7.9 % (0.0-7.3); Platelet Count 282 K/mm3 (140-440); Red Blood Count 4.88 M/mm3 (3.65-5.03); Red Cell Distribution Width 13.8 % (13.2-15.2)
[2020-09-25 04:18] LABS: BUN/Creatinine Ratio 13; Blood Urea Nitrogen 13 mg/dL (7-17); Calcium 9.7 mg/dL (8.4-10.2); Hemolysis Index 2
[2020-09-25 06:07] LABS: Amphetamine Screen,Urine PRESUMPTIVE NEGATIVE; Benzodiazepines Screen,Urine PRESUMPTIVE NEGATIVE; Cannabinoid Screen,Urine PRESUMPTIVE NEGATIVE; Cocaine Screen,Urine PRESUMPTIVE POSITIVE; Methadone Screen,Urine PRESUMPTIVE NEGATIVE; Opiate Screen,Urine PRESUMPTIVE NEGATIVE
[2020-09-25 06:12] LABS: Bacteria,Urine 1+ /HPF (Negative); Bilirubin,Urine NEG (Negative); Blood,Urine NEG (Negative); Color,Urine Yellow (Yellow); Mucus,Urine FEW /HPF
[2020-09-25 06:20] LABS: HCG Qualitative,Urine Negative (Negative)
[2020-09-25 07:00] VITALS: BP 122/60
== END 2020-09-25 07:08 | disposition home or self-care (01) ==
LOC: ED 00:50
DX: F19.10 Other psychoactive substance abuse, uncomplicated (principal); R42 Dizziness and giddiness; I10 Essential (primary) hypertension; E11.9 Type 2 diabetes mellitus without complications; Z79.899 Other long term (current) drug therapy
CPT/HCPCS: 36415; 80048; 80307; 81001; 81025; 84703; 85025; 96360; 96361; 99284; J7030; 80320; G0480